=== PATIENT | female | born 1975 | race Caucasian/White ===

== ENCOUNTER → 2017-05-05 | Outpatient (CLI) | payer OTHER ==
[2016-03-20 20:30] VITALS: BP 125/97
[~2017-05-05] MED LIST: IBUP200T43 PO; LAMO100T PO; OMEP20CA5 PO; RISP0.2519 PO; TRAZ50TA15 PO
--- NOTE | 2017-05-05 11:50 | RAD ---
Indication pain particularly involving the toes. No history of injury. AP oblique and lateral views of the left foot were obtained. No bony abnormality is seen
== END | disposition home or self-care (01) ==
LOC: DXRADRC 11:00
PROVIDERS: ATTEND Physician Assistant
DX: M79.672 Pain in left foot (principal)
CPT/HCPCS: 73630

== ENCOUNTER 2017-05-30 19:07 | Emergency (ER) | payer OTHER ==
[~2017-05-30] VITALS: Ht 175.3 cm; Wt 95.3 kg
[2017-05-30 19:24] VITALS: BP 145/85
--- NOTE | 2017-05-30 20:23 | PHYS DOC ---
Past History Past Medical History: No Pertinent History Past Surgical History: Other Smoking: Less than 1pk/day Alcohol Use: None Drug Use: None Adult General Chief Complaint Chief Complaint: KNEE SWELLING HPI HPI Marla describes dull R knee pain that started 3 days ago and is associated with decreased range of motion. The pain is worse with movement and improved with positioning. She does not have other associated symptoms. She does have a history of multiple surgeries on the same knee. She did not have any injury associated with this new pain Review of Systems Review of Systems Constitutional: Denies fever or chills [] Eyes: Denies change in visual acuity, redness, or eye pain [] HENT: Denies nasal congestion or sore throat [] Respiratory: Denies cough or shortness of breath [] Cardiovascular: No additional information not addressed in HPI [] GI: Denies abdominal pain, nausea, vomiting, bloody stools or diarrhea [] : Denies dysuria or hematuria [] Musculoskeletal: Neg except HPI Integument: Denies rash or skin lesions [] Neurologic: Denies headache, focal weakness or sensory changes [] Endocrine: Denies polyuria or polydipsia [] Family History Family History Noncontributory Allergies Allergies Allergies Coded Allergies Type Severity Reaction Last Updated Verified Penicillins Allergy Severe "All PCN's make me have a hard time to breath." "Throat swe 05/30/17 Yes doxycycline Allergy Severe "Can't breath." "Throat swells." "Itch." 05/30/17 Yes Cephalexin Monohydrate Adverse Reaction Severe "Can't breath." "Itch" "Throat swells." 05/30/17 Yes Physical Exam Physical Exam Constitutional: Well developed, well nourished, no acute distress, non-toxic appearance. [] HENT: Normocephalic, atraumatic, bilateral external ears normal, oropharynx moist, no oral exudates, nose normal. [] Eyes: PERRLA, EOMI, conjunctiva normal, no discharge. [] Neck: Normal range of motion, no tenderness, supple, no stridor. [] Cardiovascular:Heart rate regular rhythm, no murmur [] Lungs & Thorax: Bilateral breath sounds clear to auscultation [] Abdomen: Bowel sounds normal, soft, no tenderness, no masses, no pulsatile masses. [] Skin: Warm, dry, no erythema, no rash. [] Back: No tenderness, no CVA tenderness. [] Extremities: Exam limited to the R knee: Moderate swelling was noted, no ecchymosis or erythema, moderate tenderness to palpation on the medial inferior aspect of the right knee. Decreased range of motion with extension and flexion. Neurovascularly intact Neurologic: Alert and oriented X 3, normal motor function, normal sensory function, no focal deficits noted. [] Psychologic: Affect normal, judgement normal, mood normal. [] Current Patient Data Vital Signs Vital Signs Date Time Temp Pulse Resp B/P (MAP) Pulse Ox O2 Delivery O2 Flow Rate FiO2 05/30/17 19:24 98.2 92 16 96 Room Air EKG EKG [] Radiology/Procedures Radiology/Procedures R knee xray: no acute disease - Sakshi Course & Med Decision Making Course & Med Decision Making Enoc's history and physical is suspicious for a meniscus injury. Dragon Disclaimer Dragon Disclaimer This chart was dictated in whole or in part using Voice Recognition software in a busy, high-work load, and often noisy Emergency Department environment. It may contain unintended and wholly unrecognized errors or omissions. Departure Departure: Impression: Primary Impression: Right medial knee pain Disposition: HOME, SELF-CARE Condition: STABLE Referrals: JOHNNY VASQUEZ (PCP) Patient Instructions: Knee - Cartilage (Meniscus) Injury Additional Instructions: Mikaela was seen in the ED for knee pain. No emergency medical condition was found during the history and physical exam. She did have a normal xray. She was given pain medication in the ED as well as a script for several tabs of [place]. She was given crutches and advised to avoid weight bearing until she follows up with her orthopedic surgeon tomorrow. MAIA HOLLIDAY MD May 30, 2017 20:23
[2017-05-30] MEDS ORDERED: HYDROcodone/APAP 10/325 1 TAB TABLET PO ONE (20:30)
--- NOTE | 2017-05-31 08:09 | RAD ---
INDICATION: knee pain COMPARISON: None. IMPRESSION: 3 views of right knee obtained. Post operative changes status post ACL repair without definite acute fracture or dislocation.
== END 2017-05-30 20:30 | disposition home or self-care (01) ==
LOC: ER 19:07
DX: M25.561 Pain in right knee (principal); F17.200 Nicotine dependence, unspecified, uncomplicated; Z88.1 Allergy status to other antibiotic agents; Z88.0 Allergy status to penicillin
CPT/HCPCS: 73562; 99284

== ENCOUNTER 2017-06-12 12:58 | Emergency (ER) | payer OTHER ==
[2017-06-12 13:05] VITALS: BP 118/80
[2017-06-12] MEDS ORDERED: ONDA4TAB10 PO (13:39)
--- NOTE | 2017-06-12 13:44 | PHYS DOC ---
General Chief Complaint: POST-OP PROBLEM Stated Complaint: POST SURG Time Seen by MD: 13:00 Source: patient Exam Limitations: no limitations Problems: History of Present Illness Initial Comments Patient is a 42-year-old female who comes to the ED complaining of post operative complications. 1. R leg swelling: Patient underwent a right medial meniscectomy 2 days ago. She says yesterday she was very active and went shopping and developed some swelling in her right lower leg. She does have a postoperative dressing overlying her right knee. Right lower extremity swelling as mild, 1-2+ pitting there is no Homans sign. 2. Nausea and vomiting. The patient was prescribed Tylenol 3 and Zofran, patient states that each time she takes the pain medication she becomes very nauseous oftentimes vomiting. When she becomes nauseous she takes Zofran however it has not helped. She has not been taking any of the medications with food, she says no one advised her how to take the medications properly. 3. Left arm swelling: The patient had 2 IVs in her left arm for the procedure, she had one in her left forearm and one at her left lateral wrist both of which infiltrated and "blue." Patient states that her hand is slightly swollen and she cannot ascertain why her left hand has some swelling in her right does not. Patient denies fever chills sweats or myalgias no chest pain trouble breathing numbness tingling weakness or radiating symptoms. Timing/Duration: 24 hours Severity: mild Modifying Factors: improves with other Associated Symptoms: nausea/vomiting, other Allergies: Coded Allergies: Penicillins (Verified Allergy, Severe, "All PCN's make me have a hard time to breath." "Throat swe, 05/30/17) doxycycline (Verified Allergy, Severe, "Can't breath." "Throat swells." "Itch.", 05/30/17) Cephalexin Monohydrate (Verified Adverse Reaction, Severe, "Can't breath. " "Itch" "Throat swells.", 05/30/17) Past Medical History Medical History: arthritis, fibromyalgia, other (seizure, patient has history of opiate addiction) Surgical History: noncontributory Social History Smoker: cigarettes Alcohol: none Drugs: none Review of Systems Constitutional: denies chills, denies diaphoresis, denies fever, denies malaise Respiratory: denies cough, denies shortness of breath Cardiovascular: denies chest pain, denies palpitations Gastrointestinal: see HPI Genitourinary: denies dysuria, denies frequency, denies hematuria Musculoskeletal: see HPI Skin: see HPI Psychiatric/Neurological: see HPI, denies headache Physical Exam General Appearance: WD/WN, no apparent distress Eyes: bilateral eye normal inspection, bilateral eye PERRL, bilateral eye EOMI Ear, Nose, Throat: hearing grossly normal, normal ENT inspection, normal pharynx Neck: non-tender, supple Respiratory: normal breath sounds, no respiratory distress Cardiovascular: normal peripheral pulses, regular rate, rhythm Gastrointestinal: normal bowel sounds, non tender, soft, no organomegaly Back: no CVA tenderness, no vertebral tenderness Extremities: normal range of motion, no calf tenderness, normal capillary refill, pelvis stable, other (2+ pitting lower extremity edema about the right lower leg appropriate for postop, there is mild swelling and bruising of the left hand consistent with intravenous catheter trauma.) Neurologic/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 The patient was educated that Zofran takes approximately an hour to begin working when taken by mouth and if taking the medication with food did not help her nausea she was advised to take Zofran 1 hour before taking the medication with food. I reassured her regarding her swelling symptoms her questions were answered. Patient expressed agreement and understanding of the treatment plan. Departure Time of Disposition: 13:40 Disposition: HOME, SELF-CARE Diagnosis: Drug reaction (GI intolerance), LE edema Condition: GOOD Patient Instructions: Drug Reaction, GI Intolerance Additional Instructions: Continue postoperative medications and instructions. Keep your right leg elevated at all times (on a chair is better than on the floor), but ideally elevated above your heart. Remember to "pump the brakes" each commercial break. Continue current medications. Take the Zofran approximately one hour before you intend to need it. Take the Tylenol with Codeine with food, i.e. "eat half a sandwich, take the med, finish the sandwich." Prescription: Zofran ODT Follow-up with your surgeon as scheduled. Return to ED with new or changing symptoms. MARCUS MORRISSEY DO Jun 12, 2017 13:44
== END 2017-06-12 13:05 | disposition home or self-care (01) ==
LOC: ER 12:58
DX: T45.0X5A Adverse effect of antiallergic and antiemetic drugs, initial encounter (principal); T39.1X5A Adverse effect of 4-Aminophenol derivatives, initial encounter; R60.9 Edema, unspecified; F11.20 Opioid dependence, uncomplicated; M79.7 Fibromyalgia; F17.210 Nicotine dependence, cigarettes, uncomplicated; M19.90 Unspecified osteoarthritis, unspecified site; Z98.890 Other specified postprocedural states; Z88.0 Allergy status to penicillin; Z88.1 Allergy status to other antibiotic agents; Y92.89 Other specified places as the place of occurrence of the external cause
CPT/HCPCS: 99283

== ENCOUNTER → 2017-06-30 | Outpatient (CLI) | payer OTHER ==
[2017-06-12 13:05] VITALS: BP 118/80
[~2017-06-30] MED LIST changes: +ONDA4TAB10 PO
--- NOTE | 2017-06-30 11:20 | RAD ---
Chest, 2 views, 06/30/2017: History: Dyspnea, chest pain Comparison is made to a study from 02/18/2016. The heart size and pulmonary vascularity are normal. The lungs are clear. There is no evidence of pleural fluid. IMPRESSION: No acute cardiopulmonary abnormality is detected.
== END | disposition home or self-care (01) ==
LOC: DXRADRC 10:51
PROVIDERS: ATTEND Physician Assistant
DX: R06.00 Dyspnea, unspecified (principal)
CPT/HCPCS: 71020

== ENCOUNTER → 2017-10-13 | Outpatient (CLI) | payer OTHER ==
--- NOTE | 2017-10-13 11:17 | RAD ---
CHEST PA LATERAL Clinical Indication: COUGH Comparison: Chest radiograph dated 06/30/2017 Findings: Normal lung volume. No focal consolidations. Normal pulmonary vasculature. No pleural effusion or pneumothorax. The cardiomediastinal silhouette and great vessels are normal. No acute osseous abnormality. IMPRESSION: No acute cardiopulmonary process.
== END | disposition home or self-care (01) ==
LOC: RAD 10:21
PROVIDERS: ATTEND Physician Assistant
DX: R05 Cough (principal)
CPT/HCPCS: 71020

== ENCOUNTER 2017-10-27 09:34 | Emergency (ER) | payer OTHER ==
[~2017-10-27] VITALS: Ht 175.3 cm; Wt 86.9 kg
[~2017-10-27 09:34] MED LIST changes: -IBUP200T43 PO; +IBUP200T44 PO
[2017-10-27] MEDS ORDERED: IV NORMAL SALINE 1,000ML 1,000 ML IV SCH (10:05)
--- NOTE | 2017-10-27 10:16 | PHYS DOC ---
Past History Past Medical History: Fibromyalgia, Other Past Surgical History: Other Smoking: Less than 1pk/day Alcohol Use: None Drug Use: None Adult General Chief Complaint Chief Complaint: chest pain, dizziness HPI HPI Patient is a 42 year old female who presents with multiple complaints. The patient states that starting at approximately 0800 this morning, the patient started to have symptoms of malaise, dizziness, chest pain, and slurring of speech. The patient states that she has had history of chronic vertigo and dizziness and has been following with neurology as outpatient for continued evaluation. The patient states that she has not had the slurring of speech associated with her symptoms. The patient notes that she is on Lamictal and states that instead of taking it last night she did take it this morning prior to onset of symptoms. Patient also notes she has left-sided chest pain which she rates as 6 out of 10 currently. Patient states that the pain is sharp and does not radiate. Patient denies any associated nausea with her symptoms currently. Patient states that her symptoms are improving compared to onset but are still present at this time. Patient notes history of fibromyalgia but denies known history of cardiac or pulmonary disease. Review of Systems Review of Systems Constitutional: Malaise, denies fever or chills [] Eyes: Denies change in visual acuity, redness, or eye pain [] HENT: Denies nasal congestion or sore throat [] Respiratory: Denies cough or shortness of breath [] Cardiovascular: Chest pain, denies edema[] GI: Denies abdominal pain, nausea, vomiting, bloody stools or diarrhea [] : Denies dysuria or hematuria [] Musculoskeletal: Denies back pain or joint pain [] Integument: Denies rash or skin lesions [] Neurologic: Slurring speech, dizziness, denies focal weakness or sensory changes [] All other systems were reviewed and found to be within normal limits, except as documented in this note. Current Medications Current Medications Current Medications Medications (Trade) Dose Ordered Sig/David Start Time Stop Time Status Last Admin Dose Admin Sodium Chloride 1,000 ml @ 1,000 mls/hr Q1H 10/27/17 10:05 10/27/17 11:04 Allergies Allergies Allergies Coded Allergies Type Severity Reaction Last Updated Verified Penicillins Allergy Severe "All PCN's make me have a hard time to breath." "Throat swe 05/30/17 Yes doxycycline Allergy Severe "Can't breath." "Throat swells." "Itch." 05/30/17 Yes Cephalexin Monohydrate Adverse Reaction Severe "Can't breath." "Itch" "Throat swells." 05/30/17 Yes Physical Exam Physical Exam Constitutional: Alert, afebrile, no acute distress. [] HENT: Normocephalic, atraumatic, bilateral external ears normal, oropharynx moist, no oral exudates, nose normal. [] Eyes: PERRLA, EOMI, conjunctiva normal, no discharge. [] Neck: Normal range of motion, no tenderness, supple, no stridor. [] Cardiovascular:Heart rate regular rhythm, no murmur [] Lungs & Thorax: Bilateral breath sounds clear to auscultation [] Abdomen: Bowel sounds normal, soft, no tenderness, no masses, no pulsatile masses. [] Skin: Warm, dry, no erythema, no rash. [] Back: No tenderness, no CVA tenderness. [] Extremities: No tenderness, no cyanosis, no clubbing, ROM intact, no edema. [] Neurologic: Alert and oriented X 3, mild slurring of speech, 5 out of 5 box repairer strength bilaterally, no pronator drift, 5 out of 5 strength in bilateral lower extremities, normal sensory function, no focal deficits noted. [] Current Patient Data Vital Signs Vital Signs Date Time Temp Pulse Resp B/P (MAP) Pulse Ox O2 Delivery O2 Flow Rate FiO2 10/27/17 09:34 97.6 72 18 98 Room Air Lab Results Laboratory Tests Test 10/27/17 10:10 10/27/17 10:22 10/27/17 11:42 Urine Collection Type Unknown Urine Color Yellow Urine Clarity Hazy Urine pH 6.0 Urine Specific Upson 1.015 Urine Protein Neg Urine Glucose (UA) Neg mg/dL Urine Ketones (Stick) Neg mg/dL Urine Blood Neg Urine Nitrite Neg Urine Bilirubin Neg Urine Urobilinogen Dipstick 0.2 mg/dL Urine Leukocyte Esterase Neg Urine RBC 1-2 /HPF Urine WBC 1-4 /HPF Urine Squamous Epithelial Cells Few /LPF Urine Bacteria Few /HPF Urine Mucus Slight /LPF Urine Opiates Screen Neg Urine Methadone Screen Neg Urine Barbiturates Neg Urine Phencyclidine Screen Neg Urine Amphetamine/Methamphetamine Neg Urine Benzodiazepines Screen Neg Urine Cocaine Screen Neg Urine Cannabinoids Screen Neg Urine Ethyl Alcohol Neg White Blood Count 7.1 x10^3/uL Red Blood Count 4.52 x10^6/uL Hemoglobin 14.1 g/dL Hematocrit 42.0 % Mean Corpuscular Volume 93 fL Mean Corpuscular Hemoglobin 31 pg Mean Corpuscular Hemoglobin Concent 34 g/dL Red Cell Distribution Width 13.2 % Platelet Count 160 x10^3/uL Neutrophils (%) (Auto) 61 % Lymphocytes (%) (Auto) 30 % Monocytes (%) (Auto) 6 % Eosinophils (%) (Auto) 2 % Basophils (%) (Auto) 1 % Neutrophils # (Auto) 4.3 x10^3uL Lymphocytes # (Auto) 2.2 x10^3/uL Monocytes # (Auto) 0.4 x10^3/uL Eosinophils # (Auto) 0.2 x10^3/uL Basophils # (Auto) 0.0 x10^3/uL Sodium Level 141 mmol/L Potassium Level 4.3 mmol/L Chloride Level 107 mmol/L Carbon Dioxide Level 25 mmol/L Anion Gap 9 Blood Urea Nitrogen 14 mg/dL Creatinine 0.8 mg/dL Estimated GFR (Cockcroft-Gault) 77.9 Glucose Level 101 mg/dL Calcium Level 9.0 mg/dL Magnesium Level 1.9 mg/dL Total Bilirubin 0.1 mg/dL Direct Bilirubin 0.1 mg/dL Aspartate Amino Transf (AST/SGOT) 12 U/L Alanine Aminotransferase (ALT/SGPT) 22 U/L Alkaline Phosphatase 102 U/L Troponin I Quantitative < 0.017 ng/mL < 0.017 ng/mL Total Protein 6.8 g/dL Albumin 3.7 g/dL Current Medications Medications (Trade) Dose Ordered Sig/David Route PRN Reason Start Time Stop Time Status Last Admin Dose Admin Sodium Chloride 1,000 ml @ 1,000 mls/hr Q1H IV 10/27/17 10:05 10/27/17 11:04 DC 10/27/17 10:23 EKG EKG EKG #1 at 1015 interpreted by me: Heart rate 59, sinus rhythm, normal intervals , normal axis, no acute ST/T-wave abnormalities present EKG #2 interpreted by me at 1147: Heart rate 59, sinus rhythm, stable findings compared to previous EKG[] Radiology/Procedures Radiology/Procedures [address] [address] IMAGING REPORT Signed PATIENT: TRISTAN DAI ACCOUNT: [id number] : 1975 LOCATION: ER AGE: 42 SEX: F EXAM STATUS: REG ER ORD. PHYSICIAN: ISAAC REYES MD REASON: chest pain PROCEDURE: PORTABLE CHEST 1V Portable chest, 10/27/2017: History: Chest pain Comparison is made to a study from 10/13/2017. The heart size and pulmonary vascularity are normal. The lungs are clear. There is no evidence of pleural fluid. IMPRESSION: No acute cardiopulmonary abnormality is detected. DICTATED AND SIGNED BY: MARLO PATEL MD DATE: 10/27/17 1105 CC: ISAAC REYES MD; JOHNNY VASQUEZ ~ [address] [address] IMAGING REPORT Signed PATIENT: TRISTAN DAI ACCOUNT: [id number] : 1975 LOCATION: ER AGE: 42 SEX: F EXAM STATUS: REG ER ORD. PHYSICIAN: ISAAC REYES MD REASON: slurring of speech, dizziness PROCEDURE: CT HEAD WO CONTRAST CT of the head without contrast, 10/27/2017: History: Slurred speech, dizziness The ventricles are within normal limits in size. There is no shift of the midline structures. There is no evidence of acute intracranial hemorrhage or mass effect. IMPRESSION: No acute intracranial abnormality is detected. PQRS Compliance Statement: One or more of the following individualized dose reduction techniques were utilized for this examination: 1. Automated exposure control 2. Adjustment of the mA and/or kV according to patient size 3. Use of iterative reconstruction technique DICTATED AND SIGNED BY: MARLO PATEL MD DATE: 10/27/17 1054 CC: ISAAC REYES MD; JOHNNY VASQUEZ ~ [] Course & Med Decision Making Course & Med Decision Making Pertinent Labs and Imaging studies reviewed. (See chart for details) The patient showed no focal deficits on exam except for slight slurring of speech. The patient's symptoms resolved spontaneously. The patient does have noticeable slight gait instability which has reported to be chronic and is being followed up by Dr. Hananh. I spoke with Dr. Hannah regarding the patient's presentation and findings. The patient's symptoms do not appear consistent with an acute stroke. HEART score is 1. Serial troponins were negative. The patient is medically cleared for follow-up as outpatient. Dr. Hannah stated he would like to follow up with the patient in his clinic and would like to have the patient follow-up today if available. Spoke with patient regarding plan of care. The patient will continue on 81 mg aspirin daily and referred to Dr. Hannah for follow-up in the next 24 hours. Advised return emergency department for any worsening symptoms. Patient voiced understanding and in agreement with treatment plan. Dragon Disclaimer Dragon Disclaimer This electronic medical record was generated, in whole or in part, using a voice recognition dictation system. Departure Departure: Impression: Primary Impression: Atypical chest pain Additional Impressions: Gait instability Fibromyalgia Slurred speech Disposition: HOME, SELF-CARE Condition: IMPROVED Referrals: JOHNNY VASQUEZ (PCP) TAMAR HANNAH MD Patient Instructions: Chest Pain (Nonspecific) Additional Instructions: Call the office of Dr. Hannah today for follow-up in the next 24 hours for further evaluation of your symptoms. Return to the emergency department for any worsening symptoms. Be sure to take a baby aspirin daily until you have had your follow-up. Scripts Aspirin (ASPIRIN) 81 Mg Tab.chew 81 MG PO DAILY, #30 TAB Prov: ISAAC REYES MD 10/27/17 Problem Qualifiers ISAAC REYES MD Oct 27, 2017 10:16
[2017-10-27 10:39] LABS: BASO % 1 % (0-3); EOS # 0.2 x10^3/uL (0.0-0.7); EOS % 2 % (0-3); HEMOGLOBIN 14.1 g/dL (12.0-15.5); LYMPH # 2.2 x10^3/uL (1.0-4.8); LYMPH % 30 % (24-48); MEAN CORPUSCULAR HEMOGLOBIN 31 pg (25-35); MEAN CORPUSCULAR HGB CONC 34 g/dL (31-37); MEAN CORPUSCULAR VOLUME 93 fL (79-100); MONO # 0.4 x10^3/uL (0.0-1.1); MONO % 6 % (0-9); NEUT # 4.3 x10^3uL (1.8-7.7); NEUT % 61 % (31-73); PLATELET COUNT 160 x10^3/uL (140-400); RED BLOOD COUNT 4.52 x10^6/uL (3.50-5.40); RED CELL DISTRIBUTION WIDTH 13.2 % (11.5-14.5); WHITE BLOOD COUNT 7.1 x10^3/uL (4.0-11.0)
[2017-10-27 10:48] LABS: ALBUMIN 3.7 g/dL (3.4-5.0); CREATININE 0.8 mg/dL (0.6-1.0); DIRECT BILIRUBIN 0.1 mg/dL (0.0-0.2); GFR 77.9; MAGNESIUM 1.9 mg/dL (1.8-2.4); POTASSIUM 4.3 mmol/L (3.5-5.1); TOTAL BILIRUBIN 0.1 mg/dL (0.2-1.0); TOTAL PROTEIN 6.8 g/dL (6.4-8.2)
[2017-10-27 10:52] LABS: AMPHETAMINE/METHAMPHETAMINE NEG (NEG); BARBITURATES NEG (NEG); BENZODIAZEPINES NEG (NEG); CANNABINOIDS NEG (NEG); COCAINE NEG (NEG); METHADONE NEG (NEG); OPIATES NEG (NEG); PHENCYCLIDINE NEG (NEG)
[2017-10-27 10:53] LABS: BILIRUBIN,URINE NEG (NEG); CLARITY,URINE HAZY; COLOR,URINE YELLOW; GLUCOSE,URINE NEG (NEG); NITRITE,URINE NEG (NEG); UROBILINOGEN,URINE 0.2 mg/dL (0.2 mg/dL)
[2017-10-27 10:54] LABS: BACTERIA,URINE FEW /HPF (0-FEW); SQUAMOUS EPITHELIAL CELL,UR FEW /LPF
--- NOTE | 2017-10-27 10:58 | RAD ---
CT of the head without contrast, 10/27/2017: History: Slurred speech, dizziness The ventricles are within normal limits in size. There is no shift of the midline structures. There is no evidence of acute intracranial hemorrhage or mass effect. IMPRESSION: No acute intracranial abnormality is detected. PQRS Compliance Statement: One or more of the following individualized dose reduction techniques were utilized for this examination: 1. Automated exposure control 2. Adjustment of the mA and/or kV according to patient size 3. Use of iterative reconstruction technique
--- NOTE | 2017-10-27 11:09 | RAD ---
Portable chest, 10/27/2017: History: Chest pain Comparison is made to a study from 10/13/2017. The heart size and pulmonary vascularity are normal. The lungs are clear. There is no evidence of pleural fluid. IMPRESSION: No acute cardiopulmonary abnormality is detected.
--- NOTE | 2017-10-27 11:42 | EKG ---
[address] [address] Test Date: 2017-10-27 Test Time: 10:15:02 Pat Name: TRISTAN DAI Department: Room: Gender: F Director Digital Analytics: SHAKIRA : 1975 Requested By: ISAAC REYES Order Number: [id number] Reading MD: Jori Bacon MD Measurements Intervals [place] Rate: 59 P: 57 [place]: 126 QRS: 32 QRSD: 84 T: 7 QT: 412 QTc: 412 Interpretive Statements SINUS RHYTHM Electronically Signed On 11-01-2017 14:32:31 BID WRITER by Jori Bacon MD
--- NOTE | 2017-10-27 12:01 | EKG ---
[address] [address] Test Date: 2017-10-27 Test Time: 11:47:44 Pat Name: TRISTAN DAI Department: Room: Gender: F Bingo Clerk: SHAKIRA : 1975 Requested By: ISAAC REYES Order Number: [id number] Reading MD: Jori Bacon MD Measurements Intervals [place] Rate: 59 P: 54 PA: 128 QRS: 42 QRSD: 80 T: 6 QT: 410 QTc: 406 Interpretive Statements SINUS RHYTHM Electronically Signed On 11-01-2017 14:40:08 BODY LINE FINISHER by Jori Bacon MD
[2017-10-27] MEDS ORDERED: ASPI-630 PO (13:02)
[2017-10-27 13:20] VITALS: BP 110/69
[2017-10-27] MEDS ORDERED: ASPIRIN 81 MG TAB.CHEW PO ONE (13:20)
== END 2017-10-27 13:20 | disposition home or self-care (01) ==
LOC: ER 09:34
DX: R07.89 Other chest pain (principal); R26.9 Unspecified abnormalities of gait and mobility; M79.7 Fibromyalgia; F17.200 Nicotine dependence, unspecified, uncomplicated; Z88.0 Allergy status to penicillin; Z88.1 Allergy status to other antibiotic agents
CPT/HCPCS: 36415; 70450; 71010; 80048; 80076; 80307; 81001; 83735; 84484; 85025; 93005; 96360; 96361; 99285-25; G0479; J7030

== ENCOUNTER → 2017-11-02 | Outpatient (CLI) | payer OTHER ==
[2017-10-27 13:20] VITALS: BP 110/69
[~2017-11-02] MED LIST changes: +ASPI-630 PO
--- NOTE | 2017-11-02 12:22 | RAD ---
DATE: November 02, 2017 EXAM: MAMMO FLORECITA SCREENING BILATERAL HISTORY: Routine Screening COMPARISON: February 12, 2015 TECHNIQUE: Routine digital mammographic views were obtained. This study was interpreted with the benefit of Computerized Aided Detection (CAD). The breast parenchyma shows scattered fibroglandular densities. Breast parenchyma level B. FINDINGS: There is no suspicious findings. IMPRESSION: No suspicious findings. BI-RADS CATEGORY: 1 NEGATIVE RECOMMENDED FOLLOW-UP: 12M 12 MONTH FOLLOW-UP PQRS compliance statement: Patient information was entered into a reminder system with a target due date for the next mammogram. Mammography is a sensitive method for finding small breast cancers, but it does not detect them all and is not a substitute for careful clinical examination. A negative mammogram does not negate a clinically suspicious finding and should not result in delay in biopsying a clinically suspicious abnormality. "Our facility is accredited by the [employer] Mammography Program."
== END | disposition home or self-care (01) ==
LOC: MAMMO 10:33
PROVIDERS: ATTEND Physician Assistant
DX: Z12.31 Encounter for screening mammogram for malignant neoplasm of breast (principal); F17.210 Nicotine dependence, cigarettes, uncomplicated; Z80.3 Family history of malignant neoplasm of breast
CPT/HCPCS: 77063; G0202; 77067

== ENCOUNTER → 2017-12-20 | Outpatient (CLI) | payer OTHER ==
--- NOTE | 2017-12-20 15:49 | RAD ---
Examination: 3 views of the right foot History: History of right foot pain after dropping a can of fruit on top of the foot Comparison: None available Findings: The alignment of the tarsal bones, tarsometatarsal joints, metatarsophalangeal joints, interphalangeal is grossly appears unremarkable. There is no obvious acute fracture identified.Small soft tissue calcifications identified in the midfoot region. Impression: No acute osseous findings
== END | disposition home or self-care (01) ==
LOC: PMG 15:19
PROVIDERS: ATTEND Physician Assistant
DX: M79.671 Pain in right foot (principal); F12.10 Cannabis abuse, uncomplicated
CPT/HCPCS: 73630

== ENCOUNTER → 2018-01-05 | Outpatient (CLI) | payer OTHER ==
--- NOTE | 2018-01-05 11:45 | RAD ---
Three-view study of the sacrum and coccyx Indications: Tailbone pain. 2 falls within the last 2 months. Findings: No acute fracture or displacement or osteolytic process is seen. No diastases of either SI joint is seen. IMPRESSION: No acute fracture.
== END | disposition home or self-care (01) ==
LOC: PMG 10:50
PROVIDERS: ATTEND Physician Assistant
DX: M53.3 Sacrococcygeal disorders, not elsewhere classified (principal); Z91.81 History of falling
CPT/HCPCS: 72220

== ENCOUNTER 2018-02-15 17:57 | Inpatient (IN) | payer OTHER ==
[~2018-02-15] VITALS: Ht 175.3 cm; Wt 89.0 kg
[2018-02-15] MEDS ORDERED: IV NORMAL SALINE 1,000ML 1,000 ML IV SCH (18:27)
[2018-02-15] MEDS ORDERED: 0.9 % SODIUM CHLORIDE 10 ML DISP.SYRIN. IV PRN (18:30)
[2018-02-15] MEDS ORDERED: IOHEXOL 240 MG/ML 50ML VIAL. ONE (18:37)
[2018-02-15] MEDS ORDERED: ONDANSETRON PF 4 MG/2 ML VIAL. IV ONE (18:45)
[2018-02-15] MEDS ORDERED: KETOROLAC 30 MG/ML VIAL. IV ONE (18:45)
[2018-02-15] MEDS ORDERED: IOHEXOL 240 MG/ML 50ML VIAL. PO ONE (19:15)
[2018-02-15] MEDS ORDERED: IOHEXOL 300 MG/ML 75 ML VIAL. IV ONE (19:15)
[2018-02-15 19:25] LABS: BASO % 1 % (0-3); EOS # 0.1 x10^3/uL (0.0-0.7); EOS % 1 % (0-3); HEMATOCRIT 39.7 % (36.0-47.0); HEMOGLOBIN 13.6 g/dL (12.0-15.5); LYMPH % 21 % (24-48); MEAN CORPUSCULAR HEMOGLOBIN 31 pg (25-35); MEAN CORPUSCULAR HGB CONC 34 g/dL (31-37); MEAN CORPUSCULAR VOLUME 92 fL (79-100); MONO # 0.8 x10^3/uL (0.0-1.1); MONO % 9 % (0-9); NEUT # 6.6 x10^3uL (1.8-7.7); NEUT % 69 % (31-73); PLATELET COUNT 175 x10^3/uL (140-400); RED BLOOD COUNT 4.32 x10^6/uL (3.50-5.40); RED CELL DISTRIBUTION WIDTH 13.5 % (11.5-14.5); WHITE BLOOD COUNT 9.6 x10^3/uL (4.0-11.0)
[2018-02-15 19:38] LABS: BARBITURATES NEG (NEG); BENZODIAZEPINES NEG (NEG); CANNABINOIDS NEG (NEG); COCAINE NEG (NEG); METHADONE NEG (NEG); OPIATES NEG (NEG); PHENCYCLIDINE NEG (NEG)
[2018-02-15 19:39] LABS: AMPHETAMINE/METHAMPHETAMINE NEG (NEG)
[2018-02-15 19:43] LABS: ALBUMIN 3.3 g/dL (3.4-5.0); CALCIUM 8.9 mg/dL (8.5-10.1); CREATININE 0.7 mg/dL (0.6-1.0); GFR 90.5; POTASSIUM 3.8 mmol/L (3.5-5.1); TOTAL BILIRUBIN 0.4 mg/dL (0.2-1.0); TOTAL PROTEIN 6.6 g/dL (6.4-8.2)
--- NOTE | 2018-02-15 19:57 | PHYS DOC ---
Past History Past Medical History: Asthma, Bipolar, Fibromyalgia, GERD, Other Past Surgical History: Hysterectomy, Other Smoking: Less than 1pk/day Alcohol Use: Heavy Drug Use: Cocaine, Marijuana Adult General Chief Complaint Chief Complaint: ABDOMINAL PAIN [facility] HPI 43-year-old female patient with history of schizophrenia and IBS states she has had intermittent episodes of left lower quadrant pain for the last 2 - 3 months and usually having daily after eating patient states she had intermittent episodes of diarrhea and constipation related to IBS. Patient complaining of left lower quadrant pain for the 3 days as a constant aching pain with radiation to left flank that getting worse with movement and eating. Patient did this pain was more severe than her usual pain but she didn't get any pain medication as she had a scheduled EGD today. Patient states she mentioned about her pain to GI specialist but he performed the procedure. Patient rated her pain 8/10 and complaining of nausea and anorexia without vomiting. Patient complaining of patient for the last 3 days and mild distention of her abdomen. Patient states her urine is darker than usual . Patient denies vomiting, fever and chills, urinary symptoms, vaginal bleeding or discharge. Review of Systems Review of Systems Constitutional: Denies fever or chills [] Eyes: Denies change in visual acuity, redness, or eye pain [] HENT: Denies nasal congestion or sore throat [] Respiratory: Denies cough or shortness of breath [] Cardiovascular: No additional information not addressed in HPI [] GI: Reports abdominal pain, nausea, vomiting, constipation , denies bloody stools or diarrhea [] : Denies dysuria or hematuria [] Musculoskeletal: Denies back pain or joint pain [] Integument: Denies rash or skin lesions [] Neurologic: Denies headache, focal weakness or sensory changes [] Endocrine: Denies polyuria or polydipsia [] All other systems were reviewed and found to be within normal limits, except as documented in this note. Current Medications Current Medications Current Medications Medications (Trade) Dose Ordered Sig/David Start Time Stop Time Status Last Admin Dose Admin Iohexol (Omnipaque 240 Mg/ml) 50 ml 1X ONCE 02/15/18 19:15 02/15/18 19:16 DC Iohexol (Omnipaque 300 Mg/ml) 75 ml 1X ONCE 02/15/18 19:15 02/15/18 19:16 DC Ketorolac Tromethamine (Toradol) 30 mg 1X ONCE 02/15/18 18:45 02/15/18 18:46 DC 02/15/18 18:45 30 MG Ondansetron HCl (Zofran) 4 mg 1X ONCE 02/15/18 18:45 02/15/18 18:46 DC 02/15/18 18:45 4 MG Sodium Chloride (Normal Saline Flush) 10 ml QSHIFT PRN 02/15/18 18:30 Allergies Allergies Allergies Coded Allergies Type Severity Reaction Last Updated Verified Penicillins Allergy Severe "All PCN's make me have a hard time to breath." "Throat swe 02/15/18 Yes doxycycline Allergy Severe "Can't breath." "Throat swells." "Itch." 02/15/18 Yes pregabalin Allergy Intermediate 02/15/18 Yes Cephalexin Monohydrate Adverse Reaction Severe "Can't breath." "Itch" "Throat swells." 02/15/18 Yes Physical Exam Physical Exam Constitutional: Well nourished, mild distress, non-toxic appearance,anxious and talkative HENT: Normocephalic, atraumatic, bilateral external ears normal, oropharynx moist, no oral exudates, nose normal. [] Eyes: PERRLA, EOMI, conjunctiva normal, no discharge. [] Neck: Normal range of motion, no tenderness, supple, no stridor. [] Cardiovascular:Heart rate regular rhythm, no murmur [] Lungs & Thorax: Bilateral breath sounds clear to auscultation [] Abdomen: Bowel sounds normal, soft, no masses, no pulsatile masses, left lower quadrant guarding and tenderness, mild abdominal distention with gas. [] Skin: Warm, dry, no erythema, no rash. [] Back: No tenderness, no CVA tenderness. [] Extremities: No tenderness, no cyanosis, no clubbing, ROM intact, no edema. [] Neurologic: Alert and oriented X 3, normal motor function, normal sensory function, no focal deficits noted. [] Psychologic: Anxious,judgement normal, mood normal. [] Current Patient Data Vital Signs Vital Signs Date Time Temp Pulse Resp B/P (MAP) Pulse Ox O2 Delivery O2 Flow Rate FiO2 02/15/18 18:29 99.7 106 18 100 Room Air Lab Results Laboratory Tests Test 02/15/18 18:26 White Blood Count 9.6 x10^3/uL (4.0-11.0) Red Blood Count 4.32 x10^6/uL (3.50-5.40) Hemoglobin 13.6 g/dL (12.0-15.5) Hematocrit 39.7 % (36.0-47.0) Mean Corpuscular Volume 92 fL (79-100) Mean Corpuscular Hemoglobin 31 pg (25-35) Mean Corpuscular Hemoglobin Concent 34 g/dL (31-37) Red Cell Distribution Width 13.5 % (11.5-14.5) Platelet Count 175 x10^3/uL (140-400) Neutrophils (%) (Auto) 69 % (31-73) Lymphocytes (%) (Auto) 21 % (24-48) L Monocytes (%) (Auto) 9 % (0-9) Eosinophils (%) (Auto) 1 % (0-3) Basophils (%) (Auto) 1 % (0-3) Neutrophils # (Auto) 6.6 x10^3uL (1.8-7.7) Lymphocytes # (Auto) 2.0 x10^3/uL (1.0-4.8) Monocytes # (Auto) 0.8 x10^3/uL (0.0-1.1) Eosinophils # (Auto) 0.1 x10^3/uL (0.0-0.7) Basophils # (Auto) 0.0 x10^3/uL (0.0-0.2) Sodium Level 142 mmol/L (136-145) Potassium Level 3.8 mmol/L (3.5-5.1) Chloride Level 108 mmol/L (98-107) H Carbon Dioxide Level 23 mmol/L (21-32) Anion Gap 11 (6-14) Blood Urea Nitrogen 8 mg/dL (7-20) Creatinine 0.7 mg/dL (0.6-1.0) Estimated GFR (Cockcroft-Gault) 90.5 BUN/Creatinine Ratio 11 (6-20) Glucose Level 97 mg/dL (70-99) Calcium Level 8.9 mg/dL (8.5-10.1) Total Bilirubin 0.4 mg/dL (0.2-1.0) Aspartate Amino Transferase (AST) 10 U/L (15-37) L Alanine Aminotransferase (ALT) 20 U/L (14-59) Alkaline Phosphatase 99 U/L (46-116) Total Protein 6.6 g/dL (6.4-8.2) Albumin 3.3 g/dL (3.4-5.0) L Albumin/Globulin Ratio 1.0 (1.0-1.7) Lipase 215 U/L (73-393) Urine Opiates Screen Neg (NEG) Urine Methadone Screen Neg (NEG) Urine Barbiturates Neg (NEG) Urine Phencyclidine Screen Neg (NEG) Urine Amphetamine/Methamphetamine Neg (NEG) Urine Benzodiazepines Screen Neg (NEG) Urine Cocaine Screen Neg (NEG) Urine Cannabinoids Screen Neg (NEG) Urine Ethyl Alcohol Neg (NEG) EKG EKG [] Radiology/Procedures Radiology/Procedures [] [address] [address] IMAGING REPORT Signed PATIENT: TRISTAN DAI ACCOUNT: [id number] : 1975 LOCATION: ER AGE: 43 SEX: F EXAM STATUS: REG ER ORD. PHYSICIAN: JUDITH WHITE MD REASON: LLQ pain, NAUSEA, CONSTIPATION PROCEDURE: CT ABD PELV W/ORAL&IV CONTRAST CT abdomen and pelvis with contrast 02/15/2018 Clinical indication: Abdominal pain. COMPARISON: None. TECHNIQUE: Multiple CT images of the abdomen and pelvis were obtained following the intravenous administration of Omnipaque 300 75 mL. *One or more of the following individualized dose reduction techniques were utilized for this examination: 1. Automated exposure control. 2. Adjustment of the mA and/or kV according to patient size. 3. Use of iterative reconstruction technique. FINDINGS: Heart size is normal. Visualized lung bases are clear apart from tiny calcified granulomas. Liver, gallbladder, spleen, right adrenal gland, pancreas and left kidney are unremarkable. There is a subcentimeter inferior pole right renal cyst. 0.2 cm nonobstructive calculus in the superior pole the right kidney. Abdominal aorta is normal in caliber. Small and large bowel loops are normal in caliber without obstruction. The appendix is normal in appearance. There is mild descending and sigmoid diverticulosis with pericolonic stranding and trace fluid layering in the left paracolic gutter. No pneumoperitoneum or loculated fluid collection. Urinary bladder unremarkable. Prior hysterectomy. There are no destructive osseous lesions. IMPRESSION: Acute descending colonic diverticulitis without pericolonic abscess. Electronically signed by: Gene Norton MD (02/15/2018 8:45 PM) [facility] DICTATED AND SIGNED BY: GENE NORTON MD DATE: 02/15/182036 CC: JUDITH WHITE MD; JOHNNY VASQUEZ ~ Course & Med Decision Making Course & Med Decision Making Pertinent Labs and Imaging studies reviewed. (See chart for details) Evolution of patient in ER showed 43-year-old female patient with chronic abdominal pain intermittently and severe left lower quadrant pain for the last 2 days with nausea and constipation and distention of abdomen. Patient had left lower quadrant guarding and tenderness without fever or tachycardia or leukocytosis. CMP and CBC and UA was unremarkable. CT of abdomen and pelvis with oral and IV contrast showed acute diverticulitis. Patient treated with IV fluid and Zofran and Protonix and was able to sleep but later on complaining of increasing of pain and morphine and with IV fluid was ordered. Dr. Lloyd informed at 2108 and agreed with plan of admission. Patient informed about plan of care. [] Dragon Disclaimer Dragon Disclaimer This electronic medical record was generated, in whole or in part, using a voice recognition dictation system. Departure Departure: Impression: Primary Impression: Acute diverticulitis Additional Impressions: Left lower quadrant pain Nausea Disposition: ADMITTED INPATIENT (At 2108) Admitting Physician: Hill Lloyd Condition: IMPROVED Referrals: JOHNNY VASQUEZ (PCP) Problem Qualifiers JUDITH WHITE MD Feb 15, 2018 19:57
[2018-02-15 19:59] LABS: BILIRUBIN,URINE NEG (NEG); CLARITY,URINE CLEAR; COLOR,URINE YELLOW; GLUCOSE,URINE NEG (NEG); NITRITE,URINE NEG (NEG); UROBILINOGEN,URINE 0.2 mg/dL (0.2 mg/dL)
[2018-02-15 20:00] LABS: BACTERIA,URINE 0 /HPF (0-FEW); SQUAMOUS EPITHELIAL CELL,UR MANY /LPF
--- NOTE | 2018-02-15 20:48 | RAD ---
CT abdomen and pelvis with contrast 02/15/2018 Clinical indication: Abdominal pain. COMPARISON: None. TECHNIQUE: Multiple CT images of the abdomen and pelvis were obtained following the intravenous administration of Omnipaque 300 75 mL. *One or more of the following individualized dose reduction techniques were utilized for this examination: 1. Automated exposure control. 2. Adjustment of the mA and/or kV according to patient size. 3. Use of iterative reconstruction technique. FINDINGS: Heart size is normal. Visualized lung bases are clear apart from tiny calcified granulomas. Liver, gallbladder, spleen, right adrenal gland, pancreas and left kidney are unremarkable. There is a subcentimeter inferior pole right renal cyst. 0.2 cm nonobstructive calculus in the superior pole the right kidney. Abdominal aorta is normal in caliber. Small and large bowel loops are normal in caliber without obstruction. The appendix is normal in appearance. There is mild descending and sigmoid diverticulosis with pericolonic stranding and trace fluid layering in the left paracolic gutter. No pneumoperitoneum or loculated fluid collection. Urinary bladder unremarkable. Prior hysterectomy. There are no destructive osseous lesions. IMPRESSION: Acute descending colonic diverticulitis without pericolonic abscess. Electronically signed by: Maurice Norton MD (02/15/2018 8:45 PM) [facility]
[2018-02-15] MEDS ORDERED: CIPROFLOXACIN 400MG PREMIX 200 ML IV ONE (21:15)
[2018-02-15] MEDS ORDERED: ONDANSETRON PF 4 MG/2 ML VIAL. IV PRN (21:15)
[2018-02-15] MEDS: IV NORMAL SALINE 1,000ML 1,000 ML IV SCH (21:29)
[2018-02-15] MEDS ORDERED: IV NORMAL SALINE 1,000ML 1,000 ML IV ONE (21:30)
[2018-02-15] MEDS ORDERED: MORPHINE SULFATE 4 MG/ML DISP.SYRIN. IV ONE (21:30)
--- NOTE | 2018-02-15 22:05 | NUR ---
Pt was admitted from ER to [facility] room 117 via [facility], accompanied by EMS and nursing staff. Pt self transferred from [facility] to bed independently, steady gait noted. Pt here for Abd. pain and Diverticulitis. Pt had an EGD done earlier today as an outpt by Dr Zarco, was told that "they took a few biopsy I think." Home medications & health history reviewed. IVF and IV antibiotics started per order. Pt lives at home with family. SCDs for VTE. Pt refused pneumonia vaccine. Pt was given written information regarding hospital policies, unit procedures and contact persons. Valuables were checked and left at bedside, except for home medications, they were sent to Pharmacy. Call light within reach. Pt is NPO.
[2018-02-15] MEDS ORDERED: NICOTINE 21MG PATCH. TD PRN (22:30)
[2018-02-15 22:51] VITALS: BP 113/76
[2018-02-15] MEDS ORDERED: ALBU18HF IH (23:16)
[2018-02-15] MEDS ORDERED: ESTR2TAB PO (23:16)
[2018-02-15] MEDS ORDERED: METH-38 PO (23:16)
[2018-02-15] MEDS ORDERED: BUDE10.2 IH (23:16)
[2018-02-15] MEDS ORDERED: DESL5TAB PO (23:16)
[2018-02-15] MEDS ORDERED: PROC10TA PO (23:16)
[2018-02-15] MEDS ORDERED: BENZ-8 PO (23:16)
[2018-02-15] MEDS ORDERED: MONT10TA9 PO (23:16)
[2018-02-15] MEDS ORDERED: CLON0.5T3 PO (23:16)
[2018-02-15] MEDS ORDERED: PALI6TAB3 PO (23:16)
[2018-02-15] MEDS ORDERED: ROPI1TAB PO (23:16)
[2018-02-15] MEDS ORDERED: ESOM40CA PO (23:16)
[2018-02-15] MEDS ORDERED: GABA-586 PO (23:16)
[2018-02-15] MEDS ORDERED: OLOP5DRO OU (23:16)
[2018-02-15] MEDS ORDERED: OXCA300T PO ×2 (23:16)
[2018-02-15] MEDS ORDERED: CELE100C PO (23:16)
[2018-02-16] MEDS: IV NORMAL SALINE 1,000ML 1,000 ML IV SCH ×2 (04:02→13:39)
[2018-02-16 05:32] VITALS: BP 105/67
[2018-02-16] MEDS ORDERED: MORPHINE SULFATE 4 MG/ML DISP.SYRIN. IV PRN (06:00)
[2018-02-16] MEDS ORDERED: CIPROFLOXACIN 400MG PREMIX 200 ML IV SCH ×2 (06:00→09:00)
[2018-02-16 06:28] LABS: BASO % 0 % (0-3); EOS # 0.1 x10^3/uL (0.0-0.7); EOS % 1 % (0-3); HEMATOCRIT 33.9 % (36.0-47.0); HEMOGLOBIN 11.5 g/dL (12.0-15.5); LYMPH # 2.4 x10^3/uL (1.0-4.8); LYMPH % 28 % (24-48); MEAN CORPUSCULAR HEMOGLOBIN 32 pg (25-35); MEAN CORPUSCULAR HGB CONC 34 g/dL (31-37); MEAN CORPUSCULAR VOLUME 93 fL (79-100); MONO # 0.7 x10^3/uL (0.0-1.1); MONO % 8 % (0-9); NEUT # 5.3 x10^3uL (1.8-7.7); NEUT % 62 % (31-73); PLATELET COUNT 156 x10^3/uL (140-400); RED BLOOD COUNT 3.65 x10^6/uL (3.50-5.40); RED CELL DISTRIBUTION WIDTH 13.7 % (11.5-14.5); WHITE BLOOD COUNT 8.5 x10^3/uL (4.0-11.0)
[2018-02-16 06:43] LABS: ALBUMIN 2.6 g/dL (3.4-5.0); ALBUMIN/GLOBULIN RATIO 0.9 (1.0-1.7); CALCIUM 8.2 mg/dL (8.5-10.1); CREATININE 0.7 mg/dL (0.6-1.0); GFR 90.5; POTASSIUM 3.6 mmol/L (3.5-5.1); TOTAL BILIRUBIN 0.4 mg/dL (0.2-1.0); TOTAL PROTEIN 5.4 g/dL (6.4-8.2)
[2018-02-16] MEDS ORDERED: LACTOBACILLUS RHAMNOSUS GG 1 CAPSULE. PO SCH (09:00)
[2018-02-16] MEDS: KETOROLAC 30 MG/ML VIAL. IV PRN ×2 (12:02→17:34)
[2018-02-16 13:16] VITALS: BP 115/72
[2018-02-16 16:34] VITALS: BP_SYST 125; BP_SYST 138; BP_DIAS 81; BP_DIAS 84
[2018-02-16] MEDS ORDERED: clonazePAM 0.5 MG TABLET PO PRN (16:45)
[2018-02-16] MEDS ORDERED: PROCHLORPERAZINE 10 MG TABLET. PO PRN (16:45)
[2018-02-16] MEDS ORDERED: BENZONATATE 100 MG CAPSULE. PO PRN (16:45)
[2018-02-16] MEDS ORDERED: METHOCARBAMOL 750 MG TABLET PO PRN (16:45)
[2018-02-16] MEDS ORDERED: KETOTIFEN FUMARATE 0.025% OPHT SOLUTION BOTTLE. OU SCH (17:15)
[2018-02-16] MEDS ORDERED: ALBUTEROL SULFATE 2.5 MG/3 ML NEBU. NEB PRN (17:15)
[2018-02-16] MEDS ORDERED: ALBUTEROL SULFATE 2.5 MG/3 ML NEBU. NEB SCH (18:00)
--- NOTE | 2018-02-16 18:07 | SSS ---
ADMIT DATE: 02/15/2018 HISTORY OF PRESENT ILLNESS: The patient is a 43-year-old female patient who is known to have a history of schizophrenia and irritable bowel syndrome who stated that she has intermittent episodes of left lower quadrant pain for the last 2-3 months, usually having daily after eating. The patient stated that she had intermittent episodes of diarrhea and constipation related to her IBS. She did complain of left lower quadrant pain for the last 3 days as a constant aching pain with radiation to left flank that is getting worse with movement and eating. The patient stated that this pain was more severe than her usual pain, but she did not get any pain medication as she had scheduled esophagogastroduodenoscopy yesterday. She mentioned her pain to the GI specialist, but he performed the procedure. The patient rated her pain as about 8/10 and complaining of nausea and anorexia without vomiting. This pain has been going on for the last 3 days with mild distention of her abdomen. She denied any dysuria, frequency, or hematuria. She was evaluated in the Emergency Room and has had a CT scan of the abdomen and pelvis, which showed that there is mild descending and sigmoid diverticulosis with pericolonic stranding and trace fluid layering in the left paracolic gutter. No pneumoperitoneum or loculated fluid collection. Urinary bladder was unremarkable. There are no destructive osseous lesions and she was diagnosed with acute descending colonic diverticulitis without pericolic abscess and she was admitted for pain management and IV antibiotic, started on IV fluid. As she has had multiple allergies, she was started on ciprofloxacin and Flagyl. PAST MEDICAL HISTORY: Significant for bipolar disorder, posttraumatic stress disorder, social anxiety disorder, gastroesophageal reflux disease, irritable bowel syndrome, fibromyalgia, COPD/bronchial asthma, and osteomalacia. PAST SURGICAL HISTORY: Significant for right thumb fracture status post open reduction and internal fixation, right knee surgery x 3. All her teeth were extracted. She underwent esophagogastroduodenoscopy 2 times and colonoscopy once. She has also total abdominal hysterectomy and bilateral salpingo-oophorectomy. ALLERGIES: She is allergic to CEPHALEXIN, PENICILLIN, DOXYCYCLINE, and PREGABALIN. MEDICATIONS: She is currently on the following medications: She is on Clarinex 5 mg daily, albuterol sulfate 1 puff every 4 hours, methocarbamol 750 mg 1-2 tablets twice a day, Celebrex 100 mg twice a day, clonazepam 0.5 mg every 6 hours as needed, gabapentin 300 mg p.o. t.i.d., oxcarbazepine 150 mg twice a day for seizure disorder, oxcarbazepine 300 mg at bedtime. She is on paliperidone for Invega 6 mg daily. She is on ropinirole for Requip 1 mg at bedtime, benzonatate 100 mg 3 times a day, budesonide formoterol formoterol for Symbicort 2 puffs twice a day. She is on montelukast sodium 10 mg daily and olopatadine for Patanol 1 drop to both eyes twice a day. She is on prochlorperazine 10 mg every 6 hours for nausea. She is on Nexium 40 mg daily, estradiol 2 mg daily. FAMILY HISTORY: He has 2 full brothers, the older has diabetes, second one is healthy. She has a half brother she does not know much about. Her father at the age of 80 due to sepsis from bowel perforation. Her mother is still alive at the age of 75 and she has Arita's esophagus, senile macular degeneration, breast cancer, non-Hodgkin lymphoma, and stomach cancer. SOCIAL HISTORY: She is , has 2 daughters, one is 10 and the other is 20 years old. She started smoking at the age of 12 and continues to smoke up until now. She is smoking about 17 cigarettes a day. She has abused alcohol and cocaine, never used marijuana. She is now on disability. She used to be a restaurant area director. REVIEW OF SYSTEMS: The patient denied any blurring of vision, cataract, glaucoma, or macular degeneration. Denied any earache, tinnitus, or sensorineural deafness. Denied any nosebleeds, stuffy nose, or postnasal drip. Denied any sore throat, sore tongue, toothache, hoarseness of voice, or difficulty swallowing. Denied any nausea, vomiting, diarrhea, or constipation. Denied any hematemesis, melena, or hematochezia. Denied any dysuria, frequency, or hematuria. Denied any chest pain, shortness of breath, orthopnea, or paroxysmal nocturnal dyspnea. PHYSICAL EXAMINATION: GENERAL: On examining her, she looked somewhat pale, but no jaundice, cyanosis, or thyromegaly. No jugular venous distention. No limb edema. VITAL SIGNS: Her heart rate was 75, blood pressure was 115/72, temperature was 98.1, respiratory rate was 18, and oxygen saturation was 95%. HEAD, EYES, EARS, NOSE, AND THROAT: Showed normocephalic, atraumatic. NECK: Supple. HEART: Showed normal first and second heart sounds with no gallop, rub, or murmur. CHEST: Clear to auscultation. No crepitation or rhonchi. ABDOMEN: Distended, soft with tenderness mostly in the left lower quadrant and suprapubic area. There is no guarding or rigidity. No organomegaly. Hernial orifice intact. Bowel sounds normal. NEUROLOGIC: She is awake, alert, responds appropriately. All cranial nerves intact. She moves extremities without difficulty, although she has difficulty. Her pain gets worse whenever she starts to walk or move her left hip. LABORATORY DATA: Showed a white cell count of 8500, hemoglobin 11.5, hematocrit 33, MCV 93, and platelet count 256,000. Her chemistry showed a serum sodium of 144, potassium 3.6, chloride 110, bicarbonate 24, anion gap of 10, BUN 7, creatinine 0.7. Estimated GFR was 90 mL per minute. Her glucose was 101, calcium was 8.2. Total bilirubin, AST, ALT, alkaline phosphatase were normal. Total protein was 5.4, albumin was 2.6. Her urinalysis was essentially unremarkable. Her tox screen was essentially negative. Her CT scan of the abdomen and pelvis showed that the patient has acute descending colonic diverticulitis without pericolonic abscess, although there is a trace fluid layering in the left paracolic gutter. No pneumoperitoneum or loculated fluid collection. ASSESSMENT AND PLAN: Per the patient's request, the patient will be transferred to [facility]. We will consult the coordinate measuring equipment operator, ____ as well as the surgical team as well as Infectious Disease. I am a little bit concerned about the fact that she has problem with movement in her left hip joint, although there is no evidence that she has an iliopsoas abscess. NAVEEN HOSKINS MD DR: KINGSLEY/ana JOB#: [id number] / [id number]
[2018-02-16] MEDS ORDERED: BUDESONIDE 0.5 MG/2 ML NEBU NEB SCH (20:00)
[2018-02-16] MEDS ORDERED: rOPINIRole 1 MG TABLET. PO SCH (21:00)
[2018-02-16] MEDS ORDERED: CELECOXIB 100 MG CAPSULE PO SCH (21:00)
[2018-02-16] MEDS ORDERED: NON FORMULARY ITEM (Budesonide/Formoterol Fumarate (Symbicort 160-4.5 Mcg Inhaler) 2 PUFF) IH SCH (21:00)
[2018-02-16] MEDS ORDERED: risperiDONE 1 MG TABLET. PO SCH (21:00)
[2018-02-16] MEDS ORDERED: GABAPENTIN 300 MG CAPSULE. PO SCH (21:00)
[2018-02-16] MEDS ORDERED: MONTELUKAST 10 MG TABLET. PO SCH (21:00)
[2018-02-17] MEDS ORDERED: PANTOPRAZOLE 40 MG TABLET. PO SCH (07:30)
[2018-02-17] MEDS ORDERED: OXcarbazepine 150 MG TABLET. PO SCH (08:00)
[2018-02-17] MEDS ORDERED: ESTRADIOL 1 MG TABLET PO SCH (09:00)
[2018-02-17] MEDS ORDERED: CETIRIZINE HCL 10 MG TABLET PO SCH (09:00)
--- NOTE | 2018-02-18 14:57 | DS ---
DATE OF DISCHARGE: 02/16/2018 HOSPITAL COURSE: The patient is a 43-year-old female patient who basically came to the Emergency Room of [facility] with severe new onset of pain in the left lower quadrant suprapubic area. CT scan of the abdomen showed she has diverticulitis with some paracolic fluid. The pain is worse on walking. Basically, we transferred her to [facility] to be evaluated by the web communications specialist as well as the surgical team; however, there was no indication for any surgical intervention. Her pain is improved. She was started on clear liquid diet and advanced and tolerated that very well and decision was made to discharge her home to follow with her primary care physician and her web communications specialist. PHYSICAL EXAMINATION: GENERAL: On examining her today, she looked well and was clearly in no apparent respiratory distress, pale but no jaundice, cyanosis, or thyromegaly. No jugular venous distention. No limb edema. VITAL SIGNS: Her heart rate was 71, blood pressure was 103/57, temperature was 97.7, respiratory rate was 18, and oxygen saturation was 92%. HEAD, EYES, EARS, NOSE AND THROAT: Showed normocephalic, atraumatic. NECK: Supple. HEART: Showed normal first and second heart sounds. No gallop, rub, or murmur. CHEST: Clear to auscultation. No crepitation or rhonchi. ABDOMEN: Distended, soft, nontender. No guarding or rigidity. No organomegaly. Hernial orifice intact. Bowel sounds normal. NEUROLOGIC: She is awake, alert, responding appropriately. All cranial nerves intact. She moves extremities without difficulty. She ambulates without assistance or assistive devices. LABORATORY DATA: Her white cell count was 4700, hemoglobin 11, hematocrit 34, MCV 92, and platelet count of 183,000. Her serum sodium is 143, potassium 3.6, chloride 108, bicarbonate 24, anion gap of 11, BUN 7, creatinine 0.7. Estimated GFR was 90 mL per minute. Her glucose was 88, calcium was 8.6. Total bilirubin, AST, ALT, alkaline phosphatase were normal. Total protein was 6, albumin 2.6. DISCHARGE MEDICATIONS: The patient was discharged home to continue on all her home medications plus ciprofloxacin 500 mg twice a day for 7 days, Flagyl 500 mg 3 times a day for 7 days. FINAL DISCHARGE DIAGNOSES: 1. Acute diverticulitis. The patient is afebrile, pain free. She is tolerating her diet. 2. Chronic obstructive pulmonary disease/bronchial asthma. 3. Gastroesophageal reflux disease. 4. Bipolar disorder. 5. Posttraumatic stress disorder. 6. Social anxiety disorder. 7. Irritable bowel syndrome. 8. Fibromyalgia. NAVEEN HOSKINS MD DR: KINGSLEY/ana JOB#: [id number] / [id number]
== END 2018-02-16 18:35 | disposition home or self-care (01) | DRG 392 ==
LOC: ER 17:57 → 1 SOUTH 21:10 → ER 21:51
PROVIDERS: ADMIT Internal Medicine; ATTEND Internal Medicine
DX: K57.32 Diverticulitis of large intestine without perforation or abscess without bleeding (principal); F20.9 Schizophrenia, unspecified; F17.210 Nicotine dependence, cigarettes, uncomplicated; F31.9 Bipolar disorder, unspecified; F40.10 Social phobia, unspecified; F43.10 Post-traumatic stress disorder, unspecified; J45.909 Unspecified asthma, uncomplicated; K21.9 Gastro-esophageal reflux disease without esophagitis; K58.9 Irritable bowel syndrome, unspecified; J44.9 Chronic obstructive pulmonary disease, unspecified; F11.90 Opioid use, unspecified, uncomplicated; F14.90 Cocaine use, unspecified, uncomplicated; M79.7 Fibromyalgia; Z80.0 Family history of malignant neoplasm of digestive organs; Z80.3 Family history of malignant neoplasm of breast; Z80.7 Family history of other malignant neoplasms of lymphoid, hematopoietic and related tissues; Z83.3 Family history of diabetes mellitus; Z90.710 Acquired absence of both cervix and uterus; Z87.81 Personal history of (healed) traumatic fracture; Z90.722 Acquired absence of ovaries, bilateral; Z88.8 Allergy status to other drugs, medicaments and biological substances
CPT/HCPCS: 36415; 74177; 80053; 80307; 81001; 83690; 85025; 96361; 96374; 96375; 99406; J0744; J1885; J2270; J2405; J3490; Q9966; Q9967; 99285-25; G0479; J7030

== ENCOUNTER → 2018-03-09 | Outpatient (CLI) | payer OTHER ==
[2018-02-16 16:34] VITALS: BP 125/84
[~2018-03-09] VITALS: Ht 175.3 cm; Wt 83.0 kg
[~2018-03-09] MED LIST changes: +ALBU18HF IH; +BENZ-8 PO; +BUDE10.2 IH; +CELE100C PO; +CLON0.5T3 PO; +DESL5TAB PO; +ESOM40CA PO; +ESTR2TAB PO; +GABA-586 PO; +METH-38 PO; +MONT10TA9 PO; +OLOP5DRO OU; +OXCA300T PO; +PALI6TAB3 PO; +PROC10TA PO; +ROPI1TAB PO; +SINCALIDE 1.66 MCG in IV NORMAL SALINE 50ML 30 ML IV ONE
--- NOTE | 2018-03-09 08:09 | RAD ---
Right upper quadrant ultrasound 03/09/2018 Indication: Right upper quadrant pain. Comparison study: CT of the abdomen and pelvis with contrast February 15, 2018 Discussion: Ultrasound evaluation of the right upper quadrant was performed. Static images were submitted to PACS. Visualized portions of the pancreas are unremarkable. Visualized portions of aorta and IVC are unremarkable. There is a large shadowing stone within the gallbladder lumen. No evidence of gallbladder wall thickening is identified. No pericholecystic fluid is seen. The common bile duct is nondilated at 2 mm. The liver is normal in appearance measuring 17.8 cm longitudinally. The right kidney is unremarkable in appearance measuring 11.3 cm longitudinally. Impression: Cholelithiasis without sonographic evidence of acute cholecystitis
--- NOTE | 2018-03-09 10:12 | RAD ---
Radionuclide hepatobiliary scan with gallbladder ejection fraction, 03/09/2018: History: Abdominal pain Following IV injection of 5.5 mCi of technetium 99m Choletec there was prompt uptake of the radionuclide from the blood stream by the liver. Activity is present in the bile ducts and gallbladder at 10 minutes. Initial imaging out to one-hour showed increasing activity in the gallbladder without extension into the small bowel. Following IV injection of 1.7 mcg of cholecystokinin, activity does extend into the small bowel. The gallbladder ejection fraction was calculated at 57%. IMPRESSION: 1. Normal radionuclide hepatobiliary scan. 2. The gallbladder ejection fraction is 57%.
== END | disposition home or self-care (01) ==
LOC: NM 06:56
PROVIDERS: ATTEND Internal Medicine Gastroenterology
DX: K80.20 Calculus of gallbladder without cholecystitis without obstruction (principal); Z87.891 Personal history of nicotine dependence
CPT/HCPCS: 76705; 78226; 96374; 96375; A9537; J2805

== ENCOUNTER → 2018-06-12 | Outpatient (CLI) | payer OTHER ==
[2018-02-16 16:34] VITALS: BP 125/84
[~2018-06-12] MED LIST changes: +BARIUM SULFATE 60% 355 ML SUSP PO ONE; +CLON0.5T11 PO; -CLON0.5T3 PO; -PROC10TA PO; +PROC10TA2 PO; -SINCALIDE 1.66 MCG in IV NORMAL SALINE 50ML 30 ML IV ONE; +TRAZ-85 PO; -TRAZ50TA15 PO
--- NOTE | 2018-06-12 11:50 | RAD ---
INDICATION: Left lower quadrant pain. Diarrhea and constipation. Several episodes over the last several months. TECHNIQUE: Small bowel follow-through was performed. Comparison is a CT from February 15, 2018. No spot fluoroscopic images are utilized. There is no dose report or fluoroscopy time. Image count is 7. FINDINGS: Scale Reclamation Tender film demonstrates nonobstructive bowel gas pattern with gas to the rectum. There are clips in the right upper quadrant. Small bowel is normal caliber with normal fold pattern. There is no intrinsic mass or extrinsic displacement of bowel loops. Contrast reaches the colon by 120 minutes. Terminal ileum was unable to be isolated. IMPRESSION: Normal small bowel follow-through. Electronically signed by: Oleg Silva MD (06/12/2018 11:47 AM) [id number]
== END | disposition home or self-care (01) ==
LOC: RAD 08:11
PROVIDERS: ATTEND Internal Medicine Gastroenterology
DX: R10.32 Left lower quadrant pain (principal); R19.7 Diarrhea, unspecified; K59.00 Constipation, unspecified; J45.909 Unspecified asthma, uncomplicated; K21.9 Gastro-esophageal reflux disease without esophagitis
CPT/HCPCS: 74250

== ENCOUNTER → 2018-06-19 | Outpatient (CLI) | payer OTHER ==
[2018-02-16 16:34] VITALS: BP 125/84
[~2018-06-19] MED LIST changes: -BARIUM SULFATE 60% 355 ML SUSP PO ONE; +IOHEXOL 240 MG/ML 50ML VIAL. ONE; +IOHEXOL 300 MG/ML 75 ML VIAL. IV ONE
--- NOTE | 2018-06-19 10:27 | RAD ---
CT Abdomen and Pelvis With Intravenous Contrast: History: Left lower quadrant pain for 4-6 weeks. Constipation and diarrhea. Comparison: CT abdomen pelvis February 15, 2018. Technique: After administration of oral and intravenous contrast, 75 mL Omnipaque-300, CT of the abdomen and pelvis was performed. Exposure: One or more of the following individualized dose reduction techniques were utilized for this examination: 1. Automated exposure control 2. Adjustment of the mA and/or kV according to patient size 3. Use of iterative reconstruction technique Findings: Liver, spleen, and pancreas are unremarkable. The right adrenal gland demonstrates 0.9 cm nodule, unchanged. Left adrenal gland demonstrates a nodule measuring 3.4 x 1.3 cm in axial dimension, unchanged. Gallbladder is absent. Bilateral kidneys enhance symmetrically. There is some dense material involving both renal collecting systems, could represent excreted intravenous contrast versus nonobstructing nephroliths. The right kidney demonstrates 1.1 cm cyst. Appendix is without evidence of inflammation. Urinary bladder is unremarkable. Uterus is absent. No bowel obstruction is seen. Extensive colonic diverticulosis is noted especially involving the distal descending colon and the sigmoid colon. There may be minimal residual diverticulitis involving the distal descending colon and the proximal sigmoid colon. Impression: 1. Colonic diverticulosis, primarily identified in the distal colon. Question minimal residual diverticulitis of the distal descending colon and proximal sigmoid colon. No perforation or abscess is seen. 2. Bilateral adrenal nodules, left larger than right, unchanged. Electronically signed by: Misael Bates MD (06/19/2018 10:23 AM) [id number]
== END | disposition home or self-care (01) ==
LOC: CT 08:08
PROVIDERS: ATTEND Internal Medicine Gastroenterology
DX: K57.30 Diverticulosis of large intestine without perforation or abscess without bleeding (principal); E27.8 Other specified disorders of adrenal gland; J44.9 Chronic obstructive pulmonary disease, unspecified; K21.9 Gastro-esophageal reflux disease without esophagitis; Z87.891 Personal history of nicotine dependence; Z87.81 Personal history of (healed) traumatic fracture; Z91.81 History of falling; Z90.722 Acquired absence of ovaries, bilateral; Z90.710 Acquired absence of both cervix and uterus; Z80.0 Family history of malignant neoplasm of digestive organs; Z80.3 Family history of malignant neoplasm of breast; Z83.3 Family history of diabetes mellitus
CPT/HCPCS: 74177; Q9966; Q9967

== ENCOUNTER → 2018-11-02 | Outpatient (CLI) | payer OTHER ==
[2018-02-16 16:34] VITALS: BP 125/84
[~2018-11-02] MED LIST changes: -ALBU18HF IH; +ALBU2.5V8 IH; -IOHEXOL 240 MG/ML 50ML VIAL. ONE; -IOHEXOL 300 MG/ML 75 ML VIAL. IV ONE; -OXCA300T PO; +OXCA300T19 PO
--- NOTE | 2018-11-03 10:57 | RAD ---
DATE: 11/02/2018 1:00 PM EXAM: MAMMO FLORECITA SCREENING BILATERAL HISTORY: routine screening evaluation. COMPARISON: Prior mammographic imaging dating back to 02/12/2015 Bilateral CC and MLO views of the breasts were performed. Bilateral breast tomosynthesis was performed in CC and MLO projections. This study was interpreted with the benefit of Computerized Aided Detection (CAD ). Breast Density: The breast parenchyma shows scattered fibroglandular densities. Breast parenchyma level B. FINDINGS: Benign calcifications are present. There is a left breast focal asymmetry, posterior depth No suspicious masses, microcalcifications or architectural distortion is present to suggest malignancy in either breast. The visualized axillae are unremarkable. IMPRESSION: Left breast focal asymmetry, findings for which additional imaging is advised. BI-RADS CATEGORY: 0 INCOMPLETE: NEEDS ADDITIONAL IMAGING EVALUATION AND/OR PRIOR MAMMOGRAMS FOR COMPARISON. RECOMMENDED FOLLOW-UP: ADD ADDITIONAL IMAGING. Additional imaging of the left breast is recommended to include spot compression views and likely ultrasound. PQRS compliance statement: Patient information was entered into a reminder system with a target due date for the next mammogram. Mammography is a sensitive method for finding small breast cancers, but it does not detect them all and is not a substitute for careful clinical examination. A negative mammogram does not negate a clinically suspicious finding and should not result in delay in biopsying a clinically suspicious abnormality. "Our facility is accredited by the [employer] Mammography Program." ZARINAD
== END | disposition home or self-care (01) ==
LOC: MAMMO 10:59
PROVIDERS: ATTEND Physician Assistant
DX: Z12.31 Encounter for screening mammogram for malignant neoplasm of breast (principal)
CPT/HCPCS: 77063; 77067

== ENCOUNTER → 2018-11-16 | Outpatient (CLI) | payer OTHER ==
[2018-02-16 16:34] VITALS: BP 125/84
--- NOTE | 2018-11-17 12:42 | RAD ---
DATE: 11/16/2018 12:30 PM EXAM: DIGITAL DIAGNOSTIC LT, US BREAST LEFT HISTORY: further evaluation of a finding noted on her most recent screening mammographic examination. On that examination a focal asymmetry was reported within the left breast COMPARISON: Prior mammographic imaging dating back to 02/12/2015 including prior mammogram 11/02/2018 Full field 2-D ML view of the left breast and 2-D spot compression CC and MLO views of the left breast were obtained using digital technique. This study was interpreted with the benefit of Computerized Aided Detection (CAD). FINDINGS: On the spot compression views, the focal asymmetry in the left breast is better defined. Therefore this was further assessed by breast ultrasound. TECHNIQUE: Targeted high resolution sonography of the region of clinical concern in the left breast was performed. ULTRASOUND FINDINGS: Targeted ultrasound of the mammographic area of concern was performed. 3:00 position, 7 cm from the nipple: A 0.7 x 0.4 x 0.3 cm gently lobulated hypoechoic, solid lesion is seen in a parallel orientation. IMPRESSION: Left breast mass, findings for which additional short-term imaging follow-up is advised. BI-RADS CATEGORY: 3 PROBABLY BENIGN FINDING(S)-SHORT INTERVAL FOLLOW-UP SUGGESTED RECOMMENDED FOLLOW-UP: 6M 6 MONTH FOLLOW-UP 6 month follow-up ultrasound of the left breast is recommended to ensure stability. PQRS compliance statement: Patient information was entered into a reminder system with a target due date 05/16/2019 for the next ultrasound. Mammography is a sensitive method for finding small breast cancers, but it does not detect them all and is not a substitute for careful clinical examination. A negative mammogram does not negate a clinically suspicious finding and should not result in delay in biopsying a clinically suspicious abnormality. "Our facility is accredited by the [employer] Mammography Program."
== END | disposition home or self-care (01) ==
LOC: MAMMO 10:34
PROVIDERS: ATTEND Physician Assistant
DX: N63.23 Unspecified lump in the left breast, lower outer quadrant (principal); R92.8 Other abnormal and inconclusive findings on diagnostic imaging of breast
CPT/HCPCS: 76641; 77065

== ENCOUNTER → 2018-12-07 | Outpatient (CLI) | payer OTHER ==
[2018-02-16 16:34] VITALS: BP 125/84
[~2018-12-07] MED LIST changes: +IOHEXOL 240 MG/ML 50ML VIAL. ONE; +IOHEXOL 300 MG/ML 75 ML VIAL. IV ONE
--- NOTE | 2018-12-07 16:22 | RAD ---
PQRS Compliance Statement: One or more of the following individualized dose reduction techniques were utilized for this examination: 1. Automated exposure control 2. Adjustment of the mA and/or kV according to patient size 3. Use of iterative reconstruction technique CT ABD PELV W/ORAL IV CONTRAST Clinical Indication: LLQ PAIN RADIATING TO THE RIGHT TIMES 3 DAYS. Comparison: CT abdomen and pelvis with contrast, June 19, 2018. Technique: Helical CT imaging of the abdomen and pelvis is performed after 75 cc of Omnipaque 300 IV contrast. Oral contrast also given. Findings: There is bilateral lung base atelectasis or scarring. Calcified granulomas left lower lobe. Cardiac size normal. Cholecystectomy. The liver, spleen, pancreas, and abdominal aorta caliber are normal. 8 mm right and 11 mm left adrenal nodules are stable. Kidneys enhance symmetrically, no hydronephrosis. Small right lower pole renal cyst. There are 2 tiny nonobstructing right renal calculi. There is no left renal calculus. Stomach unremarkable. No dilated small bowel. Moderate sigmoid and descending colon diverticulosis. Moderate colon stool volume. No colon wall thickening. The appendix is normal. No abdominal adenopathy or free fluid. Urinary bladder is normal. Hysterectomy. No pelvic free fluid. Mild grade 1 anterolisthesis of L4 on L5. IMPRESSION: 1. No acute abdominal or pelvic abnormality. 2. Stable small adrenal nodules. 3. Nonobstructing right renal calculi. 4. Moderate distal colon diverticulosis without diverticulitis. 5. Moderate colon stool volume, correlate for constipation. Electronically signed by: Tony Armstrong MD (12/07/2018 4:17 PM) [id number]
== END | disposition home or self-care (01) ==
LOC: CT 15:02
PROVIDERS: ATTEND Physician Assistant
DX: K57.30 Diverticulosis of large intestine without perforation or abscess without bleeding (principal); N20.0 Calculus of kidney; N28.1 Cyst of kidney, acquired; J84.10 Pulmonary fibrosis, unspecified; E27.8 Other specified disorders of adrenal gland; Z90.49 Acquired absence of other specified parts of digestive tract; Z90.710 Acquired absence of both cervix and uterus
CPT/HCPCS: 74177; Q9966; Q9967

== ENCOUNTER → 2019-04-13 | Outpatient (CLI) | payer OTHER ==
[2018-02-16 16:34] VITALS: BP 125/84
[~2019-04-13] MED LIST changes: -IOHEXOL 240 MG/ML 50ML VIAL. ONE; -IOHEXOL 300 MG/ML 75 ML VIAL. IV ONE; +TRAZ-120 PO; -TRAZ-85 PO
--- NOTE | 2019-04-13 14:08 | RAD ---
Left breast ultrasound, 04/13/2019: History: 6 month follow-up of breast nodule A targeted ultrasound exam of the left breast was performed at the 3:00 location where a nodule was identified on the 11/16/2018 exam. Approximately 7 cm from the nipple the nodule is redemonstrated. The nodule is unchanged in size measuring 6 x 3 x 4 mm. Its margins are slightly lobulated. It is wider than tall. There is no definite posterior acoustic enhancement or shadowing. No new abnormality is seen in this region. IMPRESSION: Unchanged small left lateral breast nodule. Further sonographic surveillance beginning in 6 months at the time of the patient's yearly mammography is suggested. BI-RADS 3-probably benign findings
== END | disposition home or self-care (01) ==
LOC: US 12:46
PROVIDERS: ATTEND Physician Assistant
DX: N63.23 Unspecified lump in the left breast, lower outer quadrant (principal)
CPT/HCPCS: 76641

== ENCOUNTER → 2019-08-02 | Outpatient (CLI) | payer OTHER ==
[2018-02-16 16:34] VITALS: BP 125/84
[~2019-08-02] MED LIST changes: +MONT10TA80 PO; -MONT10TA9 PO
--- NOTE | 2019-08-02 16:53 | RAD ---
EXAM: PA and Lateral Views of the Chest DATE: 08/02/2019 12:00 AM INDICATION: CHEST PAIN LEFT POSTERIOR, COUGH, shortness of breath COMPARISON: No Prior FINDINGS- IMPRESSION: The heart is not enlarged. Mediastinal and hilar contours are normal. No focal parenchymal airspace opacity. No pleural effusion or pneumothorax. Pectus deformity of the anterior chest wall. Electronically signed by: Slick Frazier MD (08/02/2019 4:51 PM) [facility]
== END | disposition home or self-care (01) ==
LOC: PMG 10:26
PROVIDERS: ATTEND Physician Assistant
DX: R05 Cough (principal); R07.9 Chest pain, unspecified; R06.02 Shortness of breath; M95.4 Acquired deformity of chest and rib
CPT/HCPCS: 71046

== ENCOUNTER → 2019-10-25 | Outpatient (CLI) | payer OTHER ==
[2018-02-16 16:34] VITALS: BP 125/84
[~2019-10-25] MED LIST changes: -CLON0.5T11 PO; +CLON0.5T4 PO; -LAMO100T PO; +LAMO100T8 PO; +REGADENOSON 0.4 MG/5 ML DISP.SYRIN. IV ONE
--- NOTE | 2019-10-25 11:05 | RAD ---
MR#: [id number] Date of Study: 10/25/2019 Ordering Physician: PARAMJIT YOUNG, Referring Physician: VIKY ASTORGA Tech: RT Nereida DurandR) (N) APPROVED REPORT Test Type: Pharmacological Stress Nurse/Tech: RT Kizzy (Jordan) (N) Test Indications: chest pain Cardiac History: none, family history father [place] in 50's Medications: see EHR Medical History: COPD, smoker 32 years Resting ECG: sinus rhythm Resting Heart Rate: 58 bpm Resting Blood Pressure: 100/64mmHg Pretest Chest Pain: None Nurse/Tech Notes Consent: The procedure was explained to the patient in lay terms. Informed consent was witnessed. Calos eout was entered into [employer]. History and Stress Test performed by RT Kizzy (Jordan) (N) Pharm. Details Pharmacologic stress testing was performed using 0.4mg per 5ml of regadenoson given intravenously ove r 7-10 seconds. POST EXERCISE Reason for Termination: Infusion complete Max HR: 102 bpm Max Blood Pressure: 128/74mmHg INTERPRETATION Stress EKG Conclusion: Baseline EKG showed sinus rhythm. No ischemic changes at peak stress. No arr hythmias. Imaging Protocol IMAGE PROTOCOL: Rest Tc-99m/stress Tc-99m 1 day Rest: Stress: Viability: Radiopharm.Tc99m TullbshvrBi19x Sestamibi Dose10.2mCi 30.4mCi Duration 15min. 15min. Img Date 10/25/2019 10/25/2019 Inj-Img Ifiz58ohr. 60min. Rest Admin Site:IV - Right AntecubitalAdministrator: RT Kizzy (Jordan)(N) Stress Admin Site: IV - Right AntecubitalAdministrator: RT Maria Dolores Durand)(N) STRESS DATA End Diast. Vol.115.0mlAv. Heart Rate65.0bpm End Syst. Vol.31.0mlCO Index BSA0.0L/min Myocardial Sgae770.0gEject. Kprzsbvy51.0% Stress Rates Pk. Fill Rate3.54EDV/secLVtime Pk. Fill 109.78msec Pk. Empty Rate4.83ESV/secLVtime Pk. Jpfgu268.23msec 1/3 Pk. Fill2.37EDV/sec Stress Scores Regional WT0.00Summed WT5.00 Regional WM0.00Summed WM0.00 Study quality was good. Left Ventricular size was Normal at Rest and Stress. Lung uptake was . Left Ventricular ejection fraction is 72%. The rest and stress images show normal perfusion, normal contraction and thickening. LV Perf. Quant 17 Seg. SSS0.00 17 Seg. SRS0.00 17 Seg. SDS0.00 Stress Defect Extent (% LAD)0.00Rest Defect Extent (% LAD)0.00Rev. Defect Extent (% LAD)0.00 Stress Defect Extent (% LCX) 0.00Rest Defect Extent (% LCX)0.00Rev. Defect Extent (% LCX)0.00 Stress Defect Extent (% RCA)0.00Rest Defect Extent (% RCA)0.00Rev. Defect Extent (% RCA)0.00 Stress Defect Extent (% KAREN)0.00Rest Defect Extent (% KAREN)0.00Rev. Defect Extent (% KAREN)0.00 Conclusion 1. Regadenoson cardioisotope stress test did not show any evidence of ischemia or infarct. 2. Normal left ventricular systolic function with ejection fraction calculated at 72%. 3. Low risk for cardiac events. Signed by : Enio Hansen, Electronically Approved : 10/25/2019 11:04:38
== END | disposition home or self-care (01) ==
LOC: NM 07:10
PROVIDERS: ATTEND Internal Medicine Cardiovascular Disease
DX: R07.9 Chest pain, unspecified (principal); J44.9 Chronic obstructive pulmonary disease, unspecified; F17.200 Nicotine dependence, unspecified, uncomplicated; Z79.01 Long term (current) use of anticoagulants
CPT/HCPCS: 78452; 93017; A9500; J2785

== ENCOUNTER → 2019-12-19 | Outpatient (CLI) | payer OTHER ==
[2018-02-16 16:34] VITALS: BP 125/84
[~2019-12-19] MED LIST changes: -REGADENOSON 0.4 MG/5 ML DISP.SYRIN. IV ONE
--- NOTE | 2019-12-19 14:42 | RAD ---
Examination: 1. Bilateral digital diagnostic mammogram. 2. Limited left breast ultrasound. INDICATION: Short-term follow-up probably benign nodule in the left breast. COMPARISON: 02/12/2015 bilateral mammogram, 11/02/2018 bilateral mammogram, 11/02/2017, left breast ultrasound of 11/16/2018 as well as limited left breast ultrasound of 04/13/2019. TECHNIQUE: CC and MLO views of both breasts were obtained with 2-D and 3-D technique and reviewed with computer-aided detection. Thereafter, targeted ultrasound of the upper-outer quadrant left breast was performed. FINDINGS: Scattered fibroglandular densities. The right mammogram is negative. No developing masses, suspicious calcifications or unexplained architectural distortion in either breast. There is however a nodule in the upper outer quadrant posterior left breast 7 mm in diameter that is unchanged from 2015, showing variable conspicuity depending on differences in patient positioning. Targeted ultrasound of the upper-outer quadrant left breast shows no change in a 7 mm nodule at the left 3:00 position 7 cm from the nipple with no developing mass or suspicious sonographic findings. IMPRESSION: Benign findings. No evidence of malignancy. Recommend return to routine screening next due in one year. BI-RADS Category 2 Benign findings Patient entered into a reminder system with target due date for next mammogram. BI-RADS 2 -- benign findings
== END | disposition home or self-care (01) ==
LOC: MAMMO 12:59
PROVIDERS: ATTEND Surgery
DX: N63.21 Unspecified lump in the left breast, upper outer quadrant (principal)
CPT/HCPCS: 76641; 77066; G0279; 77062

== ENCOUNTER → 2020-05-06 | Outpatient (CLI) | payer OTHER ==
[2018-02-16 16:34] VITALS: BP 125/84
--- NOTE | 2020-05-06 15:26 | RAD ---
AP and Lateral Views of the Chest 05/06/2020 2:27 PM Indication: Reason: DYSPNEA / Spl. Instructions: / History: Comparison: chest radiograph August 02, 2019 Findings: There is no focal consolidation or infiltrate identified. The cardiomediastinal silhouette is within normal limits. There is no evidence of pneumothorax or pleural effusion. No acute osseous abnormalities are identified. Impression: No evidence of acute cardiopulmonary process. Electronically signed by: Spike Haines MD (05/06/2020 3:23 PM) [id number]
== END | disposition home or self-care (01) ==
LOC: PMG 14:19
DX: R06.00 Dyspnea, unspecified (principal)
CPT/HCPCS: 71046

== ENCOUNTER → 2020-05-27 | Outpatient (CLI) | payer OTHER ==
[2018-02-16 16:34] VITALS: BP 125/84
--- NOTE | 2020-05-27 11:00 | CARD ---
MR#: [id number] Date of Study: 05/27/2020 Ordering Physician: JOHNNY VASQUEZ, Referring Physician: JOHNNY VASQUEZ, Tech: Yanet Holman APPROVED REPORT EXAM: Two-dimensional and M-mode echocardiogram with Doppler and color Doppler. Other Information Quality : AverageHR: 68bpm INDICATION COPD Chest Pain 2D DIMENSIONS RVDd2.1 (2.9-3.5cm)Left Atrium(2D)3.5 (1.6-4.0cm) IVSd0.9 (0.7-1.1cm)Aortic Root(2D)3.1 (2.0-3.7cm) LVDd5.0 (3.9-5.9cm)LVOT Diameter2.1 (1.8-2.4cm) PWd0.8 (0.7-1.1cm)LVDs3.9 (2.5-4.0cm) FS (%) 20.6 %SV48.3 ml LVEF(%)41.8 (>50%) Aortic Valve AoV Peak Jr.115.3cm/sAoV VTI26.6cm AO Peak GR.5.3mmHgLVOT Peak Jr.107.4cm/s LVOT VTI 28.99cmAO Mean GR.3mmHg ALEKSANDRA (VMAX)3.16as7QXH (VTI)3.94cm2 Mitral Valve MV E Ggcgjizi48.9cm/sMV DECEL RHHC058xw MV A Bbauetxv43.4cm/sE/A Ratio1.5 Pulmonary Valve PV Peak Qpsysybw432.5cm/sPV Peak Grad.4mmHg Tricuspid Valve TR P. Eqiernow985oc/sRAP IORJPWJT9vvCc TR Peak Gr.25mmHg Pulmonary Vein S1 Hidapdim64.6cm/sD2 Tuvkfmtl99.2cm/s LEFT VENTRICLE The left ventricle is normal size. There is normal left ventricular wall thickness. The left ventricu lar systolic function is normal. The Ejection Fraction is 55%. There is normal LV segmental wall esau on. RIGHT VENTRICLE The right ventricle is normal size. There is normal right ventricular wall thickness. The right ventr icular systolic function is normal. ATRIA The left atrium size is normal. The right atrium size is normal. The interatrial septum is intact wit h no evidence for an atrial septal defect or patent foramen ovale as noted on 2-D or Doppler imaging. AORTIC VALVE The aortic valve is normal in structure and function. Doppler and Color Flow revealed no significant aortic regurgitation. There is no significant aortic valvular stenosis. Calculated aortic valve area is 3.7 cm2 with maximum pressure gradient of 6 mmHg and mean pressure gradient of 4 mmHg. MITRAL VALVE The mitral valve is normal in structure and function. There is no evidence of mitral valve prolapse. There is no mitral valve stenosis. Doppler and Color-flow revealed trace mitral regurgitation. TRICUSPID VALVE The tricuspid valve is normal in structure and function. Doppler and Color Flow revealed trace tricus pid regurgitation with an estimated PAP of 28 mmHg. There is no tricuspid valve stenosis. PULMONIC VALVE The pulmonic valve is not well visualized. Doppler and Color Flow revealed no pulmonic valvular regur gitation. GREAT VESSELS The aortic root is normal in size. The IVC is normal in size and collapses >50% with inspiration. PERICARDIAL EFFUSION There is no evidence of significant pericardial effusion. Critical Notification Critical Value: No <Conclusion> The left ventricular systolic function is normal. The Ejection Fraction is 55%. There is normal LV segmental wall motion. Trace mitral regurgitation. Trace tricuspid regurgitation with an estimated PAP of 28 mmHg. There is no evidence of significant pericardial effusion. Signed by : Enio Hansen, Electronically Approved : 05/27/2020 11:00:25
== END ==
LOC: ECHO 07:30
DX: R07.9 Chest pain, unspecified (principal); J44.9 Chronic obstructive pulmonary disease, unspecified
CPT/HCPCS: 93306

== ENCOUNTER → 2020-07-16 | Outpatient (CLI) | payer OTHER ==
[2018-02-16 16:34] VITALS: BP 125/84
--- NOTE | 2020-07-16 16:16 | RAD ---
PROCEDURE: HAND BILAT 2V CLINICAL INDICATION / HISTORY: Reason: BILATERAL HAND PAIN / Spl. Instructions: / History: . TECHNIQUE: Two views of the right and left hands. COMPARISON: None FINDINGS: No fracture or dislocation is identified. The bone density is normal. The joint spaces are maintained, and there are no erosions to suggest an inflammatory arthropathy. The soft tissues are unremarkable. IMPRESSION: No acute osseous abnormality. Electronically signed by: Toby Oneill MD (07/16/2020 4:13 PM) [id number]
== END | disposition home or self-care (01) ==
LOC: RAD 14:38
PROVIDERS: ATTEND Physician Assistant
DX: M79.641 Pain in right hand (principal); M79.642 Pain in left hand
CPT/HCPCS: 73120

== ENCOUNTER → 2021-01-14 | Outpatient (CLI) | payer OTHER ==
[2018-02-16 16:34] VITALS: BP 125/84
--- NOTE | 2021-01-14 17:11 | RAD ---
Examination: 1. Bilateral digital diagnostic mammogram. 2. Limited right breast ultrasound. INDICATION: 45-year-old woman with a history of right breast lump since resolved. She also reports gr eenish-huertas discharge from both nipples with expression. COMPARISON: Bilateral digital diagnostic mammogram of 12/19/2019. TECHNIQUE: CC and MLO views of both breasts were obtained with 2-D and 3-D technique and targeted ult rasound of the right breast was performed following image review. The mammograms were reviewed with c omputer-aided detection. FINDINGS: Scattered fibroglandular densities with a nodular parenchymal pattern. No mammographic correlate to the area of reported previous palpable concern is observed. No suspicious calcifications, masses, or architectural distortion. Targeted ultrasound of the right breast reveals a focally dilated duct with no intraductal mass at th e 11:00 position 2 cm from the nipple measuring 6 mm long, 3 mm wide. This is likely an incidental fi nding given the interval resolution of patient's reported palpable concern. IMPRESSION: Benign findings on bilateral diagnostic mammogram and targeted right breast ultrasound. No evidence o f malignancy. BI-RADS Category 2 Benign findings Recommend clinical management of any areas of persistent clinical concern including biopsy of any cli nically suspicious findings if present. In the absence of a clinically suspicious finding, recommend return to routine screening next due in one year. Patient entered into a reminder system with targeted due date for next mammogram. Electronically signed by: Toby Oneill MD (01/14/2021 5:09 PM) [id number]
== END ==
LOC: MAMMO 13:39
PROVIDERS: ATTEND Physician Assistant
DX: R92.8 Other abnormal and inconclusive findings on diagnostic imaging of breast (principal); N63.10 Unspecified lump in the right breast, unspecified quadrant
CPT/HCPCS: 76641; 77066; G0279; 77062

== ENCOUNTER → 2021-02-12 | Outpatient (CLI) | payer OTHER ==
[2018-02-16 16:34] VITALS: BP 125/84
--- NOTE | 2021-02-12 11:25 | RAD ---
INDICATION: Screening for osteopenia/osteoporosis. Low vitamin D. Osteomalacia. COMPARISON: None. TECHNIQUE: Bone densitometry was performed through the lumbar spine and proximal femur. IMPRESSION: Lumbar Spine: BMD: 1.16 T-Score: -0.1 Range: Normal Proximal Femur: BMD: 0.79 T-Score: -1.4 Range: Osteopenic World Health Organization Criteria for Bone Density: T-Score: > -1.0: Normal Range < -1.0 to -2.5: Osteopenic Range < -2.5: Osteoporotic Range Electronically signed by: Alonso Lerner MD (02/12/2021 11:22 AM) [id number]
== END ==
LOC: DXRAD 09:53
PROVIDERS: ATTEND Obstetrics & Gynecology
DX: M83.9 Adult osteomalacia, unspecified (principal)
CPT/HCPCS: 77080

== ENCOUNTER → 2021-07-13 | Outpatient (CLI) | payer OTHER ==
[2018-02-16 16:34] VITALS: BP 125/84
--- NOTE | 2021-07-13 14:10 | RAD ---
EXAM: Left elbow, 3 views; left forearm, 2 views; left wrist, 3 views. HISTORY: Pain. Fall. COMPARISON: None. FINDINGS: Left elbow: 3 views of the left elbow are obtained. There is no fracture, dislocation or subluxation. There is no elbow effusion. There is a tiny ossicle along the superior aspect of the olecranon. Left forearm and wrist: 2 views of the left forearm and 3 views of the left wrist are obtained. There is no fracture, dislocation or subluxation. The alignment and joint spaces are unremarkable. There i s no radiodense foreign body. IMPRESSION: No acute osseous finding. Electronically signed by: Ansley Hooks MD (07/13/2021 2:08 PM) [id number]
== END ==
LOC: PMG 13:39
PROVIDERS: ATTEND Nurse Practitioner Family
DX: M79.602 Pain in left arm (principal)
CPT/HCPCS: 73080; 73090; 73110

== ENCOUNTER → 2021-12-04 | Outpatient (CLI) | payer OTHER ==
[2018-02-16 16:34] VITALS: BP 125/84
[~2021-12-04] MED LIST changes: -ESTR2TAB PO; +ESTR2TAB3 PO
--- NOTE | 2021-12-04 15:26 | RAD ---
PA and lateral chest x-ray without comparison and without indication. FINDINGS: Lungs are clear. Cardiomediastinum is grossly unremarkable. No significant soft tissue or o sseous abnormalities. IMPRESSION: 1. No acute cardiopulmonary abnormality. Electronically signed by: Vikas Bunch MD (12/04/2021 3:24 PM) [id number]
== END ==
LOC: RAD 12:11
PROVIDERS: ATTEND Physician Assistant
DX: R05.8 Other specified cough (principal)
CPT/HCPCS: 71046

== ENCOUNTER → 2022-02-24 | Outpatient (CLI) | payer OTHER ==
[2018-02-16 16:34] VITALS: BP 125/84
[~2022-02-24] MED LIST changes: +IOHEXOL 300 MG/ML 75 ML VIAL. IV ONE; +IOHEXOL 300 MG/ML 75 ML VIAL. ONE
--- NOTE | 2022-02-24 14:33 | RAD ---
INDICATION: Abdomen pain COMPARISON: November 2018 TECHNIQUE: Axial CT images were obtained through the abdomen and pelvis with intravenous contrast. One or more of the following individualized dose reduction techniques were utilized for this examinat ion: 1. Automated exposure control; 2. Adjustment of the mA and/or kV according to patient size; 3 . Use of iterative reconstruction technique. FINDINGS: Linear opacities at lung bases which can be seen with atelectasis or scarring. Calcified granulomas a t lung bases. Vascular: Scattered calcific atherosclerosis. Hepatobiliary: Liver is low density which can be seen with fatty infiltration. Postcholecystectomy ch anges. Spleen: Spleen unremarkable. Renal/Bladder: Nodular thickening of left greater than right adrenal gland again seen measuring up to 14 mm on the left. Bilateral nonobstructive renal stones. Urinary bladder is partially distended. Lo w-density lesion of the right kidney again seen and grossly similar to prior. This is a common findin g. Pancreas: No peripancreatic edema. Gastrointestinal: Colonic diverticulosis. No periappendiceal inflammatory changes. No dilated loops o f bowel to suggest obstruction. Degenerative changes of the spine. IMPRESSION: * No evidence of bowel obstruction or appendicitis. * Nonobstructive renal stones without hydronephrosis. Electronically signed by: Alonso Lerner MD (02/24/2022 2:30 PM) [id number]
== END ==
LOC: RAD 11:42
PROVIDERS: ATTEND Nurse Practitioner Family
DX: R91.8 Other nonspecific abnormal finding of lung field (principal); J84.10 Pulmonary fibrosis, unspecified; E27.8 Other specified disorders of adrenal gland; N20.0 Calculus of kidney; Z90.49 Acquired absence of other specified parts of digestive tract
CPT/HCPCS: 74177; Q9967

== ENCOUNTER → 2022-02-24 | Outpatient (CLI) | payer OTHER ==
[2018-02-16 16:34] VITALS: BP 125/84
[~2022-02-24] MED LIST changes: -IOHEXOL 300 MG/ML 75 ML VIAL. IV ONE; -IOHEXOL 300 MG/ML 75 ML VIAL. ONE
--- NOTE | 2022-02-24 11:44 | RAD ---
DIAGNOSTIC BILATERAL BREAST MAMMOGRAM AND RIGHT BREAST ULTRASOUND TECHNIQUE: Bilateral 2-D and 3-D T2 mammography and routine CC and MLO projections. Grayscale and col or doppler ultrasound of the right breast. INDICATION: Right breast palpable lesion. COMPARISON: 01/14/2021, 12/19/2019, 11/16/2018, 11/02/2018 FINDINGS: Breast Density: Category B: There are scattered fibroglandular densities. A palpable marker is present at the anterior outer right breast. There is a 0.8 cm diameter circumscr ibed mass in the right outer breast approximately 4 cm to the nipple with small round calcification a t the margin corresponding closely to the palpable marker. No suspicious right breast calcifications or architectural distortion. No suspicious masses, calcifications or architectural distortion in the left breast. Right breast ultrasound demonstrates anechoic circumscribed cyst with increased through transmission measuring 0.7 x 0.5 x 0.9 cm in the 9:00 radial 3 cm from the nipple. There is a focus of parenchymal artifact at the margin consistent with calcification. Mild central duct ectasia. Images of the right axilla demonstrates benign-appearing lymph nodes. IMPRESSION: 1. Benign right breast cyst corresponding to palpable abnormality. No evidence of malignancy in the bilateral breasts. ASSESSMENT: BI-RADS 2: Benign. RECOMMENDATION: Routine annual screening mammogram. The facility will notify the patient of the results via mail. Patient information will be entered int o the mammography reminder system with a target recall date for the next mammogram. A reminder letter will be generated by the facility. Electronically signed by: Lamonte Elkins MD (02/24/2022 11:42 AM) [id number]
== END ==
LOC: MAMMO 09:04
PROVIDERS: ATTEND Physician Assistant
DX: N63.10 Unspecified lump in the right breast, unspecified quadrant (principal); Z00.00 Encounter for general adult medical examination without abnormal findings; N60.01 Solitary cyst of right breast; N60.41 Mammary duct ectasia of right breast
CPT/HCPCS: 76641; 77066; G0279; 77062

== ENCOUNTER 2022-04-02 11:04 | Emergency (ER) | payer OTHER ==
[~2022-04-02] VITALS: Ht 175.3 cm; Wt 93.6 kg
[~2022-04-02 11:04] MED LIST changes: -CIPR500T2 PO; -HYDR-2155 PO; -METR-34 PO
[2022-04-02 11:20] VITALS: BP 152/99
[2022-04-02] MEDS ORDERED: IV NORMAL SALINE 1,000ML 1,000 ML IV SCH (11:30)
--- NOTE | 2022-04-02 11:30 | PHYS DOC ---
Past History Past Medical History: Asthma, Bipolar, Fibromyalgia, GERD, Other (DIMA HARRY APRN) Past Surgical History: Hysterectomy, Other (DIMA HARRY APRN) Smoking: Less than 1pk/day Alcohol Use: Heavy Drug Use: Cocaine, Marijuana (DIMA HARRY APRN) General Adult HPI: HPI: Patient is a 47-year-old female who presents to the emergency department sent in by primary care provider for right lower quadrant pain that radiates to her right flank with nausea that started 2 weeks ago. Patient rates her pain 8 out of 10. No treatment prior to arrival. Patient denies vomiting, diarrhea, fevers, urinary complaints. Patient has a history of COPD, bipolar disorder, anxiety with chronic low back/hip and neck pain. (DIMA HARRY APRN) Review of Systems: Review of Systems: Constitutional: See HPI GI: See HPI : See HPI Musculoskeletal: See HPI (DIMA HARRY APRN) Allergies: Allergies: Allergies Coded Allergies Type Severity Reaction Last Updated Verified Penicillins Allergy Severe "All PCN's make me have a hard time to breath." "Throat swe 02/15/18 Yes doxycycline Allergy Severe "Can't breath." "Throat swells." "Itch." 02/15/18 Yes pregabalin Allergy Intermediate 02/15/18 Yes Cephalexin Monohydrate Adverse Reaction Severe "Can't breath." "Itch" "Throat swells." 02/15/18 Yes (DIMA HARRY APRN) Physical Exam: PE: Constitutional: Well developed, well nourished, no acute distress, non-toxic appearance. [] HENT: Normocephalic, atraumatic, bilateral external ears normal, oropharynx moist, no oral exudates, nose normal. [] Eyes: PERRL, EOMI, conjunctiva normal, no discharge. [] Neck: Normal range of motion, no tenderness, supple, no stridor. [] Cardiovascular:Heart rate regular rhythm, no murmur [] Lungs & Thorax: Bilateral breath sounds clear to auscultation [] Abdomen: Bowel sounds normal, soft, right lower abdominal tenderness with palpation, no rigidity or guarding, no masses, no pulsatile masses. [] Skin: Warm, dry, no erythema, no rash. [] Back: No tenderness, no CVA tenderness. [] Extremities: No tenderness, no cyanosis, no clubbing, ROM intact, no edema. [] Neurologic: Alert and oriented X 3, normal motor function, normal sensory function, no focal deficits noted. [] Psychologic: Affect normal, judgement normal, mood normal. [] (DIMA HARRY APRN) Current Patient Data: Labs: Laboratory Tests Test 04/02/22 11:32 White Blood Count 8.0 x10^3/uL Red Blood Count 4.68 x10^6/uL Hemoglobin 14.8 g/dL Hematocrit 43.7 % Mean Corpuscular Volume 93 fL Mean Corpuscular Hemoglobin 32 pg Mean Corpuscular Hemoglobin Concent 34 g/dL Red Cell Distribution Width 13.2 % Platelet Count 186 x10^3/uL Neutrophils (%) (Auto) 61 % Lymphocytes (%) (Auto) 31 % Monocytes (%) (Auto) 5 % Eosinophils (%) (Auto) 2 % Basophils (%) (Auto) 1 % Neutrophils # (Auto) 4.9 x10^3uL Lymphocytes # (Auto) 2.5 x10^3/uL Monocytes # (Auto) 0.4 x10^3/uL Eosinophils # (Auto) 0.2 x10^3/uL Basophils # (Auto) 0.1 x10^3/uL Sodium Level 138 mmol/L Potassium Level 3.8 mmol/L Chloride Level 107 mmol/L Carbon Dioxide Level 21 mmol/L Anion Gap 10 Blood Urea Nitrogen 19 mg/dL Creatinine 0.8 mg/dL Estimated GFR (Cockcroft-Gault) 76.2 BUN/Creatinine Ratio 24 Glucose Level 108 mg/dL Calcium Level 9.3 mg/dL Total Bilirubin 0.4 mg/dL Aspartate Amino Transf (AST/SGOT) 13 U/L Alanine Aminotransferase (ALT/SGPT) 31 U/L Alkaline Phosphatase 122 U/L Total Protein 7.2 g/dL Albumin 3.9 g/dL Albumin/Globulin Ratio 1.2 Lipase 120 U/L Current Medications Medications (Trade) Dose Ordered Sig/David Route PRN Reason Start Time Stop Time Status Last Admin Dose Admin Sodium Chloride 1,000 ml @ 1,000 mls/hr Q1H IV 04/02/22 11:30 04/02/22 12:29 DC 04/02/22 12:20 Fentanyl Citrate (Fentanyl 2ml Vial) 50 mcg 1X ONCE IVP 04/02/22 11:45 04/02/22 11:46 DC 04/02/22 12:21 Ondansetron HCl (Zofran) 4 mg 1X ONCE IVP 04/02/22 11:45 04/02/22 11:46 DC 04/02/22 12:20 (DIMA HARRY APRN) EKG: EKG: [] (DIMA HARRY APRN) Radiology/Procedures: Radiology/Procedures: []PROCEDURE: CT ABDOMEN PELVIS WO CONTRAST CT ABDOMEN+PELVIS WO History: Right lower quadrant pain. History of diverticulitis Comparison: 02/24/2022 Technique: CT abdomen and pelvis without contrast. Findings: Mild dependent changes in the lung bases. Calcified pulmonary granulomata. Mild hypoattenuation of the liver compatible steatosis. Cholecystectomy clips. Pancreas and spleen are unremarkable. Bilateral lipid rich adrenal adenomas measuring 1.1 cm on the right and 1.7 cm on the left. Bilateral nephrolithiasis without evidence of obstruction. 7 mm right upper pole nephrolith and 2 mm left interpolar nephrolith. No ureterolithiasis. Right renal cyst. The stomach and small bowel are unremarkable. Normal appendix. Sigmoid predominant diverticulosis with mild long segment wall thickening of the sigmoid colon. No significant pericolonic inflammatory changes. The bladder is decompressed. Status post hysterectomy. No pelvic masses. Une nhanced vasculature is unremarkable. No intra-abdominal free air or free fluid. No adenopathy. Soft tissues and osseous structures are unremarkable. Impression: 1. Colonic diverticulosis with mild sigmoid colon wall thickening however no significant pericolonic inflammatory changes. Findings may be due to underdistention or a mild diverticulitis/colitis. 2. Bilateral nonobstructing nephrolithiasis. 3. Bilateral lipid rich adrenal adenomas. ------ Exposure: One or more of the following individualized dose reduction techniques were utilized for this examination: 1. Automated exposure control 2. Adjustment of the mA and/or kV according to patient size 3. Use of iterative reconstruction technique. Electronically signed by: Lamonte Pereira MD (04/02/2022 12:21 PM) [id number] DICTATED AND SIGNED BY: LAMONTE PEREIRA MD DATE: 04/02/22 9851 CC: JOHNNY VASQUEZ; DIMA HARRY APRN ~ (DIMA HARRY APRN) Heart Score: C/O Chest Pain: N/A Risk Factors: Risk Factors: DM, Current or recent (<one month) smoker, HTN, HLP, family history of CAD, obesity. Risk Scores: Score 0 - 3: 2.5% MACE over next 6 weeks - Discharge Home Score 4 - 6: 20.3% MACE over next 6 weeks - Admit for Clinical Observation Score 7 - 10: 72.7% MACE over next 6 weeks - Early Invasive Strategies (DIMA HARRY APRN) Course & Med Decision Making: Course & Med Decision Making Pertinent Labs and Imaging studies reviewed. (See chart for details) [] Patient presents to the emergency department for right lower quadrant pain with nausea that started 2 weeks ago. Work-up in the ER consisted of blood work including lipase, urinalysis and CT imaging of abdomen and pelvis without contrast due to national shortage. Patient is treated with IV fluids, nausea and pain medication. Since lab work is unremarkable. CT imaging does show diverticulosis with possible mild diverticulitis. Patient is reporting nausea but she is not having any vomiting and she is able to tolerate oral intake. There is no large abscess visualized. Patient will be discharged with pain medication and antibiotic to treat diverticulitis. She was educated on placing himself on a liquid diet and eating low fiber foods. She is advised to follow-up with the GI doctor in 1 was provided for her. Patient reports that she follows up with Dr. Maloney and has an appointment at the end of the month. Her vital signs are stable. I discussed with patient all findings and diagnostic testing as well as the need to follow-up with PCP for further evaluation and treatment or return to the ER if any new or worsening symptoms. Strict return precautions were also discussed at length. Patient voiced understanding and agreement with the plan. Patient is hemodynamically stable at the time of disposition. (DIMA HARRY APRN) Dragon Disclaimer: Dragon Disclaimer: This electronic medical record was generated, in whole or in part, using a voice recognition dictation system. (DIMA HARRY APRN) Attending Co-Sign The patient was seen and interviewed as well as examined at the bedside. The chart was reviewed. The case was discussed. Agree with the plan of care. (EJ VINCENT DO) Departure Departure: Impression: Primary Impression: Acute diverticulitis Disposition: HOME / SELF CARE / HOMELESS Condition: GOOD Referrals: JOHNNY VASQUEZ (PCP) SYDNIE ZARCO MD Patient Instructions: Diverticulitis Additional Instructions: You are seen in the emergency department today for abdominal pain. You were noted to have diverticulosis with mild diverticulitis. You are being discharged home with an antibiotic to treat this. Please start and finish the antibiotic completely. Increase your fluids and placed herself on a liquid diet and eat a low fiber diet. You are also being discharged home with pain medication. This medication is hydrocodone and Tylenol and a combination tablet. This medication may cause sedation so do not take any need to be alert, driving a vehicle or with alcohol. Please follow-up with Dr. Zarco on Tuesday regarding your ER visit. Return to the emergency department if you develop worsening of your abdominal pain, intractable nausea or vomiting, high fevers refractory to treatment, blood in your stools or vomit. Scripts Ciprofloxacin Hcl (CIPROFLOXACIN HCL) 500 Mg Tablet 1 TAB PO BID for diverticulitis for 5 Days, #10 TAB 0 Refills Prov: DIMA HARRY [employer] 04/02/22 Metronidazole (METRONIDAZOLE) 500 Mg Tablet 1 TAB PO TID for diverticulitis for 5 Days, #15 TAB 0 Refills Prov: DIMA HARRY [employer] 04/02/22 Hydrocodone Bit/Acetaminophen (HYDROCODONE-APAP 5-325 ) 1 Each Tablet 1 TAB PO PRN Q6HRS PRN for PAIN for 2 Days, #8 TAB 0 Refills Prov: DIMA HARRY [employer] 04/02/22 DIMA HARRY APRN April 02, 2022 11:30 EJ VINCENT DO April 03, 2022 06:26
[2022-04-02] MEDS ORDERED: ONDANSETRON PF 4 MG/2 ML VIAL. IVP ONE (11:45)
[2022-04-02 11:46] LABS: BASO # 0.1 x10^3/uL (0.0-0.2); BASO % 1 % (0-3); EOS # 0.2 x10^3/uL (0.0-0.7); EOS % 2 % (0-3); HEMATOCRIT 43.7 % (36.0-47.0); HEMOGLOBIN 14.8 g/dL (12.0-15.5); LYMPH # 2.5 x10^3/uL (1.0-4.8); LYMPH % 31 % (24-48); MEAN CORPUSCULAR HEMOGLOBIN 32 pg (25-35); MEAN CORPUSCULAR HGB CONC 34 g/dL (31-37); MEAN CORPUSCULAR VOLUME 93 fL (79-100); MONO # 0.4 x10^3/uL (0.0-1.1); MONO % 5 % (0-9); NEUT # 4.9 x10^3uL (1.8-7.7); NEUT % 61 % (31-73); PLATELET COUNT 186 x10^3/uL (140-400); RED BLOOD COUNT 4.68 x10^6/uL (3.50-5.40); RED CELL DISTRIBUTION WIDTH 13.2 % (11.5-14.5)
[2022-04-02 12:00] LABS: CALCIUM 9.3 mg/dL (8.5-10.1); CREATININE 0.8 mg/dL (0.6-1.0); GFR 76.2; POTASSIUM 3.8 mmol/L (3.5-5.1)
[2022-04-02 12:07] LABS: ALBUMIN 3.9 g/dL (3.4-5.0); ALBUMIN/GLOBULIN RATIO 1.2 (1.0-1.7); TOTAL BILIRUBIN 0.4 mg/dL (0.2-1.0); TOTAL PROTEIN 7.2 g/dL (6.4-8.2)
--- NOTE | 2022-04-02 12:23 | RAD ---
CT ABDOMEN+PELVIS WO History: Right lower quadrant pain. History of diverticulitis Comparison: 02/24/2022 Technique: CT abdomen and pelvis without contrast. Findings: Mild dependent changes in the lung bases. Calcified pulmonary granulomata. Mild hypoattenuation of th e liver compatible steatosis. Cholecystectomy clips. Pancreas and spleen are unremarkable. Bilateral lipid rich adrenal adenomas measuring 1.1 cm on the right and 1.7 cm on the left. Bilateral nephrolit hiasis without evidence of obstruction. 7 mm right upper pole nephrolith and 2 mm left interpolar nep hrolith. No ureterolithiasis. Right renal cyst. The stomach and small bowel are unremarkable. Normal appendix. Sigmoid predominant diverticulosis wit h mild long segment wall thickening of the sigmoid colon. No significant pericolonic inflammatory olu nges. The bladder is decompressed. Status post hysterectomy. No pelvic masses. Unenhanced vasculature is un remarkable. No intra-abdominal free air or free fluid. No adenopathy. Soft tissues and osseous struct ures are unremarkable. Impression: 1. Colonic diverticulosis with mild sigmoid colon wall thickening however no significant pericolonic inflammatory changes. Findings may be due to underdistention or a mild diverticulitis/colitis. 2. Bilateral nonobstructing nephrolithiasis. 3. Bilateral lipid rich adrenal adenomas. ------ Exposure: One or more of the following individualized dose reduction techniques were utilized for thi s examination: 1. Automated exposure control 2. Adjustment of the mA and/or kV according to patient size 3. Use of iterative reconstruction technique. Electronically signed by: Lamonte Elkins MD (04/02/2022 12:21 PM) [id number]
[2022-04-02] MEDS ORDERED: METR-34 PO (12:58)
[2022-04-02] MEDS ORDERED: CIPR500T2 PO (12:58)
[2022-04-02] MEDS ORDERED: HYDR-2155 PO (12:58)
== END 2022-04-02 13:40 | disposition home or self-care (01) ==
LOC: ER 11:04
DX: K57.92 Diverticulitis of intestine, part unspecified, without perforation or abscess without bleeding (principal); J45.909 Unspecified asthma, uncomplicated; F31.9 Bipolar disorder, unspecified; M79.7 Fibromyalgia; K21.9 Gastro-esophageal reflux disease without esophagitis; F17.200 Nicotine dependence, unspecified, uncomplicated; J44.9 Chronic obstructive pulmonary disease, unspecified; F10.20 Alcohol dependence, uncomplicated; Z90.710 Acquired absence of both cervix and uterus; Z88.0 Allergy status to penicillin; Z88.1 Allergy status to other antibiotic agents; Z88.8 Allergy status to other drugs, medicaments and biological substances; Y90.9 Presence of alcohol in blood, level not specified
CPT/HCPCS: 36415; 74176; 80053; 83690; 85025; 96361; 96374; 96375; 99284; J2405; J3010; J7030

== ENCOUNTER → 2022-04-02 | Outpatient (CLI) | payer OTHER ==
[2018-02-16 16:34] VITALS: BP 125/84
[~2022-04-02] MED LIST changes: +CIPR500T2 PO; +HYDR-2155 PO; +METR-34 PO
--- NOTE | 2022-04-02 10:47 | RAD ---
Plain film abdominal examination consisting of 3 view(s) of the abdomen. History: Right lower quadrant pain for 3 weeks. Patient still has appendix Comparison: None. There is no bowel dilation. Gas is seen in the rectum, and the bowel gas pattern is non-obstructive. No organomegaly. There is approximately 4 mm calcification overlying the right upper pole collecting system suggestive of renal calculus. Phleboliths are seen in the pelvis. The bony structures are unremarkable in appearance. Impression: 1. Right upper pole collecting system calculus identified. No obvious ureteral calculus seen. Right u pper quadrant clips identified to suggest prior cholecystectomy. Electronically signed by: Abilio Devi MD (04/02/2022 10:44 AM) [id number]
== END ==
LOC: RAD 10:16
PROVIDERS: ATTEND Physician Assistant
DX: R10.31 Right lower quadrant pain (principal)
CPT/HCPCS: 74019